=== PATIENT | female | born 1930 | race Caucasian/White ===

== ENCOUNTER 2016-11-11 01:31 | Inpatient (IN) | payer OTHER ==
[2016-11-11] MEDS ORDERED: methylPREDNISolone SOD SUCC 125 MG/2 ML VIAL ONE ×2 (01:35→01:36)
[2016-11-11] MEDS ORDERED: ALBUTEROL 3 ML DEYVIAL ONE (01:35)
[2016-11-11] MEDS ORDERED: methylPREDNISolone SOD SUCC 125 MG/2 ML VIAL IVP ONE (01:36)
[2016-11-11] MEDS ORDERED: ALBUTEROL 3 ML DEYVIAL IH ONE (01:37)
[2016-11-11] MEDS ORDERED: IPRATROPIUM/ALBUTEROL 3 ML DEYVIAL IH ONE (01:37)
--- NOTE | 2016-11-11 01:42 | CPEKG ---
Heart Rate: 107 RR Interval: 561 P-R Interval: 168 QRSD Interval: 80 QT Interval: 320 QTC Interval: 427 P [place]: 58 QRS [place]: 237 T Wave [place]: 49 EKG Severity - ABNORMAL ECG - EKG Impression: SINUS TACHYCARDIA EKG Impression: INFERIOR INFARCT, OLD Electronically Signed By: Bing Vargas 11-Nov-2016 08:18:29
--- NOTE | 2016-11-11 01:45 | EDPHY ---
H & P Time Seen by Provider: 11/11/16 01:40 HPI/ROS: HPI The patient presents brought in by ambulance for respiratory distress. She comes from [facility] where she is a resident. She for the last several hours has had labored breathing according to her usp staff. Upon arrival of paramedics her room air saturation was 80%, she is normally on 2 L of supplemental oxygen. She was notably tachycardic as well. She was diagnosed with influenza A last week and was started on Tamiflu yesterday. She had a fever today to 101.1 F and she has been coughing. There is concerned that she has a pneumonia. In the ambulance, she was started on CPAP with improvement in her oxygen saturations to the high 90s. A glucose was checked and was 510. She is DNR. REVIEW OF SYSTEMS Constitutional: No fever, no chills. Eyes: No discharge. ENT: No sore throat. Cardiovascular: No chest pain, no palpitations. Respiratory: No cough, no shortness of breath. Gastrointestinal: No abdominal pain, no vomiting. Genitourinary: No hematuria. Musculoskeletal: No back pain. Skin: No rashes. Neurological: No headache. PMHx: CHF, COPD, chronic kidney disease, diabetes Soc Hx: Lives at [facility] PHYSICAL General Appearance: Alert, in respiratory distress, CPAP in place, tachypneic Eyes: Pupils equal and round no pallor or injection ENT, Mouth: Mucous membranes dry Respiratory: There are no retractions, decreased breath sounds bilaterally Cardiovascular: Tachycardic rate Gastrointestinal: Abdomen is soft and non-tender, no masses, bowel sounds normal Neurological: A&O, moves all extremities Skin: Warm and dry, no rashes Musculoskeletal: Neck is supple non tender Extremities: symmetrical, no lower extremity edema Psychiatric: Patient is oriented X 3, there is no agitation Source: Patient, Family, EMS - Medical/Surgical History Hx Asthma: No Hx Chronic Respiratory Disease: Yes Hx Diabetes: Yes Hx Cardiac Disease: Yes Hx Renal Disease: Yes Hx Cirrhosis: No Hx Alcoholism: No Hx HIV/AIDS: No Hx Splenectomy or Spleen Trauma: No Other PMH: HTN, CKD, CHF, COPD, diverticulitis, DM, OA, dementia, L mastectomy, GERD, spinal stenosis, - Social History Smoking Status: Never smoked Constitutional: Initial Vital Signs Temperature (C) 38.1 C 11/11/16 01:42 Heart Rate 120 H 11/11/16 01:42 Respiratory Rate 40 H 11/11/16 01:42 Blood Pressure 193/105 H 11/11/16 01:42 O2 Sat (%) 85 L 11/11/16 01:42 O2 Delivery Mode Bi-Pap Allergies/Adverse Reactions: adhesive tape Allergy (Verified 11/11/16 01:52) codeine Allergy (Verified 06/09/15 07:59) Penicillins Allergy (Verified 11/11/16 01:52) iv dye Allergy (Uncoded 06/09/15 07:59) Home Medications: Medication Instructions Recorded ALPRAZolam [Xanax 0.25 MG (*)] 0.25 mg PO Q6 PRN 06/09/15 ARIPiprazole [Abilify 2 mg (*)] 2 mg PO SUTUWETHFRSA@09 06/09/15 Acetaminophen [Tylenol Rectal] 650 mg MI QID PRN 06/09/15 Bisacodyl [Dulcolax] 10 mg RC DAILY PRN 06/09/15 Brimonidine 0.2% [Alphagan 0.2%] 1 drops EACHEYE BID 06/09/15 Calcium Carbonate [Tums 500MG (*)] 500 mg PO Q4 PRN 06/09/15 Famotidine [Pepcid 20 MG (*)] 40 mg PO DAILY 06/09/15 Herbals/Supplements -Info Only 1 ea PO DAILY 06/09/15 Hydrocodone/Acetaminophen [[place] 1 each PO TID 06/09/15 5/325 (*)] Latanoprost 0.005% [Xalatan 0.005% 1 drops EACHEYE HS 06/09/15 (*)] Loperamide HCl [Imodium 2 mg (*)] 2 mg PO PRN PRN 06/09/15 Memantine HCl [Namenda Xr] 14 mg PO DAILY 06/09/15 Mineral Oil/Petrolatum,White 0.25 inch OP HS 06/09/15 [Refresh P.m. Ointment] Ondansetron Odt [Zofran Odt 4 mg 4 mg PO QID PRN 06/09/15 (*)] PARoxetine HCL [Paxil 30mg (*)] 30 mg PO DAILY 06/09/15 Tears/Hypromellose [Natural 1 - 2 drops EACHEYE BID PRN 06/09/15 Balance] Tears/Hypromellose [Natural 2 drops EACHEYE DAILY 06/09/15 Balance] Tiotropium Inhaler [Spiriva 1 inh IH DAILY PRN 06/09/15 Inhaler (RX)] Zolpidem Tartrate [Ambien 5MG (*)] 5 mg PO HS PRN 06/09/15 hydrOXYzine HCL [Vistaril 10MG 10 mg PO HS 06/09/15 (RX)] hydrOXYzine HCL [Vistaril 10MG 10 mg PO Q12 PRN 06/09/15 (RX)] Medical Decision Making - Diagnostics EKG Interpretation: EKG: Complete interpretation has been separately recorded in the [employer] archive. Summary impression: Normal sinus rhythm Imaging: Chest x-ray one view shows right middle/lower lobe pneumonia with cardiomegaly, interpreted by me, radiology interpretation is pending ED Course/Re-evaluation: 1:35 a.m.- Initial patient encounter. I met the paramedics at the bedside to obtain report. She will be started on BiPAP, albuterol, Solu-Medrol. 2:00 a.m.- I talked with the patient's daughter who flew in from [place] today because of her mother's illness. She says she has been with her since this afternoon and she has been mildly confused, the mostly acting herself. Chest x-ray is back and shows a right-sided pneumonia, because she is a [facility]p resident I will give her broad-spectrum antibiotics. Cefepime has been ordered as well as blood cultures. 2:40 a.m.- Patient's lactate returned greater than 2. Because of this, I will start a 30 cc /kilos fluid bolus. We will have to administer this slowly because she does have a history of CHF. I have or ready ordered cefepime for her. A repeat lactate has also been ordered. We attempted to room take her off of BiPAP, however she was persistently tachypneic with normal sats so we will continue this for now. She will be admitted to the ICU in the case has been discussed with Dr. Graff. Differential Diagnosis: This is an 86-year-old female with multiple medical problems including CHF, COPD , diabetes, recent diagnosis of influenza a and Tamiflu who presents with cough , respiratory distress, fever for the last several hours from her [facility], brought in by ambulance. On arrival she is in mild respiratory distress and is continued on BiPAP with nebs in line. She is given a dose of Solu-Medrol. Differential diagnosis includes pneumonia, influenza, COPD exacerbation, CHF exacerbation. Critical Care Time: CRITICAL CARE Critical care time spent by me, Dr Vargas, exclusively with this patient was 60 minutes, exclusive of PA time and exclusive of procedures. The organ system at risk was pulmonary, cardiac and I gave IV fluids, antibiotics, BiPAP, transferred to the ICU to prevent worsening of the patients condition. - Data Points Laboratory Results: Laboratory Results 11/11/16 02:11 11/11/16 01:50 11/11/16 11/11/16 11/11/16 02: 01:50 00:21 WBC 23.10 H 10^3/uL REJ (3.80-9.50) RBC 4.36 10^6/uL REJ (4.18-5.33) Hgb 12.1 L g/dL REJ (12.6-16.3) Hct 37.4 L % REJ (38.0-47.0) MCV 85.8 fL REJ (81.5-99.8) MCH 27.8 L pg REJ (27.9-34.1) MCHC 32.4 g/dL REJ (32.4-36.7) RDW 14.9 % REJ (11.5-15.2) Plt Count 125 L 10^3/uL REJ (150-400) MPV 13.2 H fL REJ (8.7-11.7) Neut % (Auto) Not Reported REJ Lymph % (Auto) Not Reported REJ [place] % (Auto) Not Reported REJ Eos % (Auto) Not Reported REJ Baso % (Auto) Not Reported REJ Nucleat RBC Rel Count 0.1 % REJ (0.0-0.2) Absolute Neuts (auto) Not Reported REJ Absolute Lymphs (auto) Not Reported REJ Absolute Monos (auto) Not Reported REJ Absolute Eos (auto) Not Reported REJ Absolute Basos (auto) Not Reported REJ Absolute Nucleated RBC 0.03 H 10^3/uL REJ (0-0.01) Immature Gran % Not Reported REJ Seg Neutrophils % 70 % Band Neutrophils % 14 % Lymphocytes % 4 % Monocytes % 11 % Basophils % 1 % Immature Gran # Not Reported REJ Absolute Seg Neuts 16.17 H 10^/uL (1.70-6.50) Absolute Band Neuts 3.23 H 10^3/uL (0.00-0.70) Absolute Lymphocytes 0.92 L 10^3/uL (1.00-3.00) Absolute Monocytes 2.54 H 10^3/uL (0.30-0.80) Absolute Basophils 0.23 H 10^3/uL (0.02-0.10) Nucleated RBCs 1 H /100 WBC (0-0) Dohle Bodies PRESENT H Platelet Estimate DECREASED L (ADEQ) Polychromasia 1+ H Smear Review By Pending ABG Lactic Acid REJ VBG Lactic Acid 2.9 H mmol/L (0.7-2.1) Sodium 137 mEq/L (134-144) Potassium 3.8 mEq/L (3.5-5.2) Chloride 101 mEq/L (97-110) Carbon Dioxide 21 L mEq/l (22-31) Anion Gap 15 mEq/L (8-16) BUN 44 H mg/dL (7-23) Creatinine 1.8 H mg/dL (0.6-1.0) Estimated GFR 27 Glucose 537 H* mg/dL (70-100) Calcium 7.9 L mg/dL (8.5-10.4) Troponin I 0.060 H ng/mL (0-0.034) NT-Pro-B Natriuret Pep 2340 H pg/mL (0-450) Medications Given: Discontinued Medications Albuterol (Proventil Neb) 3 ml IH EDNOW ONE Stop: 11/11/16 01:38 Last Admin: 11/11/16 01:40 Dose: 3 ml Albuterol/Ipratropium (Duoneb) 3 ml IH EDNOW ONE Stop: 11/11/16 01:38 Last Admin: 11/11/16 01:50 Dose: 3 ml Cefepime HCl 2 gm/ Dextrose 100 mls @ 200 mls/hr IV EDNOW ONE PRN Reason: Protocol Stop: 11/11/16 02:19 Last Admin: 11/11/16 02:35 Dose: 100 mls Insulin Human Regular (Humulin R) 10 unit IVP EDNOW ONE Stop: 11/11/16 02:45 Last Admin: 11/11/16 03:35 Dose: 10 mg Methylprednisolone Sodium Succinate (Solu-Medrol) 125 mg IVP EDNOW ONE Stop: 11/11/16 01:37 Last Admin: 11/11/16 02:12 Dose: 125 mg Sodium Chloride (Ns *For Sepsis Order Set Only*) 2,000 ml IV EDNOW ONE Stop: 11/11/16 02:39 Last Admin: 11/11/16 03:30 Dose: 2,000 ml Departure - Departure Disposition: [facility] Inpatient Acute Clinical Impression: Influenza A, Elevated troponin Pneumonia Qualifiers: Pneumonia type: due to unspecified organism Laterality: unspecified laterality Lung location: unspecified part of lung Qualifier Code: (J18.9) Pneumonia, unspecified organism Sepsis Qualifiers: Sepsis type: sepsis due to unspecified organism Qualifier Code: (A41.9) Sepsis , unspecified organism CHF (congestive heart failure) Qualifiers: Congestive heart failure type: systolic Congestive heart failure chronicity: acute on chronic Qualifier Code: (I50.23) Acute on chronic systolic (congestive ) heart failure Condition: Serious
[2016-11-11] MEDS ORDERED: CEFEPIME HCL 2 GM in D5W 100 ML IV ONE (01:50)
[2016-11-11 02:20] LABS: ANION GAP 15 mEq/L (8-16); CALCIUM 7.9 mg/dL (8.5-10.4); CARBON DIOXIDE 21 mEq/l (22-31); CHLORIDE 101 mEq/L (97-110); CREATININE 1.8 mg/dL (0.6-1.0); GLOMERULAR FILTRATION RATE 27; POTASSIUM 3.8 mEq/L (3.5-5.2); SODIUM 137 mEq/L (134-144)
[2016-11-11 02:27] LABS: GLUCOSE 537 mg/dL (70-100)
[2016-11-11 02:35] LABS: ABSOLUTE NRBC COUNT 0.03 10^3/uL (0-0.01); ADD DIFF? YES; ADD MORPH? NO; ADD SCAN? NO; ATYPICAL LYMPHOCYTE FLAG 0 (0-99); FRAGMENT RBC FLAG 0 (0-99); HEMATOCRIT 37.4 % (38.0-47.0); HEMOGLOBIN 12.1 g/dL (12.6-16.3); LEFT SHIFT FLG 40 (0-99); LIPEMIA HEMOLYSIS FLAG 80 (0-99); MEAN CELL HEMOGLOBIN 27.8 pg (27.9-34.1); MEAN CELL HEMOGLOBIN CONCENTR. 32.4 g/dL (32.4-36.7); MEAN CELL VOLUME 85.8 fL (81.5-99.8); MEAN PLATELET VOLUME 13.2 fL (8.7-11.7); NRBC-AUTO% 0.1 % (0.0-0.2); PLATELET CLUMPS FLAG 10 (0-99); PLATELET COUNT 125 10^3/uL (150-400); RED BLOOD CELL COUNT 4.36 10^6/uL (4.18-5.33); RED CELL DISTRIBUTION WIDTH 14.9 % (11.5-15.2)
[2016-11-11] MEDS ORDERED: NS 1,000 ML BAG *FOR SEPSIS ORDER SET ONLY IV ONE (02:38)
[2016-11-11] MEDS ORDERED: INSULIN REGULAR HUMAN 100 UNIT/ML IVP ONE (02:44)
[2016-11-11] MEDS ORDERED: ALBUTEROL 3 ML DEYVIAL IH PRN (03:01)
[2016-11-11] MEDS ORDERED: ONDANSETRON DISINTEGRATING 4 MG TAB PO PRN (03:01)
[2016-11-11] MEDS ORDERED: ACETAMINOPHEN 325 MG TAB PO PRN (03:01)
[2016-11-11 03:02] LABS: PLATELET ESTIMATE DECREASED (ADEQ); POLYCHROMASIA 1+
[2016-11-11] MEDS ORDERED: D50W 25 GM/50 ML SYR IVP PRN (03:10)
[2016-11-11 03:52] LABS: PCO2 VENOUS 28 mmHg (40-44); PH VENOUS BLOOD 7.36 (7.31-7.42); PO2 VENOUS 191 mmHg (35-40); TCO2 VENOUS 17 mEq/L (23-27); VEN MEASURED OXYGEN SATURATION 99 % (65-75)
[2016-11-11 05:15] LABS: ALANINE AMINOTRANSFERASE 25 IU/L (9-52); ALBUMIN 2.9 g/dL (3.5-5.0); ALKALINE PHOSPHATASE 139 IU/L (38-126); ANION GAP 16 mEq/L (8-16); ASPARTATE AMINOTRANSFERASE 20 IU/L (14-46); BILIRUBIN,TOTAL 0.8 mg/dL (0.1-1.4); CALCIUM 7.7 mg/dL (8.5-10.4); CARBON DIOXIDE 18 mEq/l (22-31); CHLORIDE 107 mEq/L (97-110); CREATININE 1.7 mg/dL (0.6-1.0); GLOMERULAR FILTRATION RATE 28; GLUCOSE 465 mg/dL (70-100); SODIUM 141 mEq/L (134-144); TOTAL PROTEIN 6.3 g/dL (6.3-8.2)
[2016-11-11] MEDS: IPRATROPIUM/ALBUTEROL 3 ML DEYVIAL IH SCH ×4 (05:37→19:52)
[2016-11-11 05:57] LABS: POTASSIUM 2.7 mEq/L (3.5-5.2)
[2016-11-11] MEDS ORDERED: PROTOCOL POTASSIUM 1 DOSE MISC PRN (06:08)
[2016-11-11] MEDS ORDERED: PROTOCOL MAGNESIUM 1 DOSE IV PRN (06:08)
[2016-11-11 06:09] LABS: TROPONIN I 0.058 ng/mL (0-0.034)
[2016-11-11 06:26] LABS: COLOR PALE YELLOW; LEUKOCYTE ESTERASE,URINE NEGATIVE (NEGATIVE); NITRITE,URINE NEGATIVE (NEGATIVE)
[2016-11-11] MEDS ORDERED: POTASSIUM Cl (KCl) 10 MEQ/100 ML BAG IV ONE (06:28)
[2016-11-11 06:29] LABS: AMORPHOUS PRESENT /hpf (NONE-1+); BACTERIA TRACE /hpf (NONE SEEN); MUCUS TRACE /lpf (NONE-1+)
[2016-11-11] MEDS ORDERED: INSULIN REGULAR HUMAN 100 UNIT in NS 100 ML IV SCH ×2 (06:30→23:30)
[2016-11-11] MEDS: INSULIN LISPRO 100 UNIT/ML SC SCH ×5 (06:35→22:16)
[2016-11-11] MEDS: methylPREDNISolone SOD SUCC 125 MG/2 ML VIAL IVP SCH ×3 (06:39→21:07)
[2016-11-11] MEDS: POTASSIUM Cl (KCl) 100 ML IV SCH ×4 (06:45→12:47)
[2016-11-11 06:52] LABS: CALCULATED OXYGEN SATURATION 96 % (92-95)
--- NOTE | 2016-11-11 06:57 | PDGENHP ---
History and Physical - Chief Complaint acute respiratory failure - History of Present Illness Patient is an 86/F with HTN, GERD, COPD, chronic respiratory failure and DM2, resides in [facility] and was transferred to the ED for fever and acute respiratory failure. patient able to provide any history due to altered mental status and respiratory distress, history obtained from patient's daughter. Daughter states patient began to feel generally unwell about 1 week ago with generalized fatigue and malaise. Over the following day her to do she also developed cough, and by 11/10 patient had developed a fever at her SNF. With the development of the fever, patient was noted to become significantly more lethargic over the course of the day and her respiratory status also worsened. A flu swab was obtained and returned positive for influenza A. Patient was started on tamiflu at [facility], however, given her worsening respiratory and mental status, she was transferred to the ED for further management. At her baseline, patient is oriented to person, place, time and aware of her family and surroundings. She is wheelchair bound, but had been active in her SNF prior to present illness. On arrival to the ED, patient was febrile, tachycardic and hypoxic, but BP was stable. Labs revealed elevated leukocytosis, elevated glucose, elevated lactic acid and mildly elevated troponin. CXR revealed likely RML/RLL infiltrate. EKG did not reveal any obvious ischemia. She was given broad spectrum antibiotics, placed on BIPAP for respiratory failure and admitted to the hospitalist service for further management. Patient's two daughters were at bedside during admission and stated that patient would not want invasive measures performed if the prognosis for recovery was poor. Given pt's tenuous respiratory status on BIPAP and underlying lung disease, daughters were asked if patient would want intubation for worsening respiratory status and they stated she would not want to pursue this and the daughters also both agreed with this sentiment. They wish any reversible medical problems be treated as best as possible, but have made patient DNR/DNI. History Information - Allergies/Home Medication List Allergies/Adverse Reactions: adhesive tape Allergy (Verified 11/11/16 01:52) codeine Allergy (Verified 06/09/15 07:59) Penicillins Allergy (Verified 11/11/16 01:52) iv dye Allergy (Uncoded 06/09/15 07:59) Home Medications: ALPRAZolam [Xanax 0.25 MG (*)] 0.25 mg PO Q6 PRN 06/09/15 [Last Taken 06/08/15] ARIPiprazole [Abilify 2 mg (*)] 2 mg PO SUTUWETHFRSA@09 06/09/15 [Last Taken 05/15] Acetaminophen [Tylenol Rectal] [address] QID PRN 06/09/15 [Last Taken Unknown] Bisacodyl [Dulcolax] 10 mg RC DAILY PRN 06/09/15 [Last Taken Unknown] Brimonidine 0.2% [Alphagan 0.2%] 1 drops EACHEYE BID 06/09/15 [Last Taken ] Calcium Carbonate [Tums 500MG (*)] 500 mg PO Q4 PRN 06/09/15 [Last Taken Unknown ] Famotidine [Pepcid 20 MG (*)] 40 mg PO DAILY 06/09/15 [Last Taken 06/08/15] Herbals/Supplements -Info Only 1 ea PO DAILY 06/09/15 [Last Taken Unknown] Hydrocodone/Acetaminophen [[place] 5/325 (*)] 1 each PO TID 06/09/15 [Last Taken 06/08/15] Latanoprost 0.005% [Xalatan 0.005% (*)] 1 drops EACHEYE HS 06/09/15 [Last Taken 06/08/15] Loperamide HCl [Imodium 2 mg (*)] 2 mg PO PRN PRN 06/09/15 [Last Taken Unknown] Memantine HCl [Namenda Xr] 14 mg PO DAILY 06/09/15 [Last Taken 06/08/15] Mineral Oil/Petrolatum,White [Refresh P.m. Ointment] 0.25 inch OP HS 06/09/15 [ Last Taken 06/08/15] Ondansetron Odt [Zofran Odt 4 mg (*)] 4 mg PO QID PRN 06/09/15 [Last Taken 06/08] PARoxetine HCL [Paxil 30mg (*)] 30 mg PO DAILY 06/09/15 [Last Taken 06/08/15] Tears/Hypromellose [Natural Balance] 1 - 2 drops EACHEYE BID PRN 06/09/15 [Last Taken Unknown] Tears/Hypromellose [Natural Balance] 2 drops EACHEYE DAILY 06/09/15 [Last Taken 06/08/15] Tiotropium Inhaler [Spiriva Inhaler (RX)] 1 inh IH DAILY PRN 06/09/15 [Last Taken Unknown] Zolpidem Tartrate [Ambien 5MG (*)] 5 mg PO HS PRN 06/09/15 [Last Taken Unknown] hydrOXYzine HCL [Vistaril 10MG (RX)] 10 mg PO HS 06/09/15 [Last Taken 06/08/15] hydrOXYzine HCL [Vistaril 10MG (RX)] 10 mg PO Q12 PRN 06/09/15 [Last Taken Unknown] I have personally reviewed and updated: family history, medical history, social history, surgical history - Past Medical History Additional medical history: HTN. GERD. COPD. chronic respiratory failure on 2 -3L NC. DM2 on oral meds only. CKD stage 3-4. Glaucoma. ? chf, per daughters , however, no other documentation of this - Surgical History Reports: no pertinent surgical hx - Family History Positive for: non-pertinent - Social History Smoking Status: Never smoked Alcohol Use: None Drug Use: None Additional social history: Patient has lived in [facility] for > 4years, has 4 children in total, 2 present at bedside, 2 others live out of state and are attempting to fly in. Review of Systems Review of Systems: unable to obtain ROS due to altered mental status Physical Exam Temp Pulse Resp BP Pulse Ox 37.6 C 104 H 38 H 167/85 H 97 11/11/16 05:02 11/11/16 05:37 11/11/16 05:37 11/11/16 05:02 11/11/16 05:37 FIO2 (%) 40 Constitutional: chronically ill appearing, obese, other (altered, in respiratory distress) Eyes: PERRL, anicteric sclera, EOMI Ears, Nose, Mouth, Throat: hearing normal, ears appear normal, no oral mucosal ulcers, dry mucous membranes Cardiovascular: no murmur, rub, or gallop, pulses symmetric bilaterally, tachycardia, No JVD, No edema Peripheral Pulses: 2+: dorsalis-pedis (R), dorsalis-pedis (L) Respiratory: reduced air movement, expiratory wheeze, inspiratory crackles, respiratory distress (on BIPAP, tachycpneic, using accessory muscles of respiration) Gastrointestinal: normoactive bowel sounds, soft, non-tender abdomen, no palpable masses, No guarding, No rebound Genitourinary: no bladder fullness, no bladder tenderness Skin: other (perineal skin erythema and breakdown; present on arrival) Musculoskeletal: generalized weakness Neurologic: other (lethargic, but answers yes/no questions; unable to assess full neuro exam, moving all extremities equally ) Psychiatric: encephalopathic Lab Data & Imaging Review 11/11/16 02:11 11/11/16 04:40 WBC 23.10 10^3/uL (3.80-9.50) H 11/11/16 02:11 RBC 4.36 10^6/uL (4.18-5.33) 11/11/16 02:11 Hgb 12.1 g/dL (12.6-16.3) L 11/11/16 02:11 Hct 37.4 % (38.0-47.0) L 11/11/16 02:11 MCV 85.8 fL (81.5-99.8) 11/11/16 02:11 MCH 27.8 pg (27.9-34.1) L 11/11/16 02:11 MCHC 32.4 g/dL (32.4-36.7) 11/11/16 02:11 RDW 14.9 % (11.5-15.2) 11/11/16 02:11 Plt Count 125 10^3/uL (150-400) L 11/11/16 02:11 MPV 13.2 fL (8.7-11.7) H 11/11/16 02:11 Neut % (Auto) Not Reported 11/11/16 02:11 Lymph % (Auto) Not Reported 11/11/16 02:11 [place] % (Auto) Not Reported 11/11/16 02:11 Eos % (Auto) Not Reported 11/11/16 02:11 Baso % (Auto) Not Reported 11/11/16 02:11 Nucleat RBC Rel Count 0.1 % (0.0-0.2) 11/11/16 02:11 Absolute Neuts (auto) Not Reported 11/11/16 02:11 Absolute Lymphs (auto) Not Reported 11/11/16 02:11 Absolute Monos (auto) Not Reported 11/11/16 02:11 Absolute Eos (auto) Not Reported 11/11/16 02:11 Absolute Basos (auto) Not Reported 11/11/16 02:11 Absolute Nucleated RBC 0.03 10^3/uL (0-0.01) H 11/11/16 02:11 Immature Gran % Not Reported 11/11/16 02:11 Seg Neutrophils % 70 % 11/11/16 02:11 Band Neutrophils % 14 % 11/11/16 02:11 Lymphocytes % 4 % 11/11/16 02:11 Monocytes % 11 % 11/11/16 02:11 Basophils % 1 % 11/11/16 02:11 Immature Gran # Not Reported 11/11/16 02:11 Absolute Seg Neuts 16.17 10^/uL (1.70-6.50) H 11/11/16 02:11 Absolute Band Neuts 3.23 10^3/uL (0.00-0.70) H 11/11/16 02:11 Absolute Lymphocytes 0.92 10^3/uL (1.00-3.00) L 11/11/16 02:11 Absolute Monocytes 2.54 10^3/uL (0.30-0.80) H 11/11/16 02:11 Absolute Basophils 0.23 10^3/uL (0.02-0.10) H 11/11/16 02:11 Nucleated RBCs 1 /100 WBC (0-0) H 11/11/16 02:11 Dohle Bodies PRESENT H 11/11/16 02:11 Platelet Estimate DECREASED (ADEQ) L 11/11/16 02:11 Polychromasia 1+ H 11/11/16 02:11 Specimen Type ARTERIAL 11/11/16 06:41 Puncture Site REJ 11/11/16 06:18 Patient Temperature 37.9 DEGREES 11/11/16 06:41 pCO2 33 mmHg (34-38) L 11/11/16 06:41 pO2 94 mmHg (65-75) H 11/11/16 06:41 Total CO2 18 mEq/L (23-27) L 11/11/16 06:41 Base Excess -8.0 mEq/L (-2.5-2.5) L 11/11/16 06:41 ABG pH 7.32 (7.35-7.45) L 11/11/16 06:41 ABG HCO3 17 mEq/L (22-26) L 11/11/16 06:41 ABG O2 Sat (Calculated) 96 % (92-95) H 11/11/16 06:41 ABG O2 Saturation REJ 11/11/16 06:18 ABG Base Excess REJ 11/11/16 06:18 ABG Lactic Acid REJ 11/11/16 06:18 VBG pH 7.36 (7.31-7.42) 11/11/16 03:43 VBG HCO3 16 mEQ/L (22-26) L 11/11/16 03:43 VBG Total CO2 17 mEq/L (23-27) L 11/11/16 03:43 VBG O2 Saturation 99 % (65-75) H 11/11/16 03:43 VBG Base Excess -8.0 mEq/L (-2.5-2.5) L 11/11/16 03:43 VBG Lactic Acid 2.8 mmol/L (0.7-2.1) H 11/11/16 05:20 Mixed VBG pCO2 28 mmHg (40-44) L 11/11/16 03:43 Mixed VBG pO2 191 mmHg (35-40) H 11/11/16 03:43 Sodium 141 mEq/L (134-144) 11/11/16 04:40 Potassium 2.7 mEq/L (3.5-5.2) L* 11/11/16 04:40 Chloride 107 mEq/L (97-110) 11/11/16 04:40 Carbon Dioxide 18 mEq/l (22-31) L 11/11/16 04:40 Bicarbonate REJ 11/11/16 06:18 Anion Gap 16 mEq/L (8-16) 11/11/16 04:40 BUN 40 mg/dL (7-23) H 11/11/16 04:40 Creatinine 1.7 mg/dL (0.6-1.0) H 11/11/16 04:40 Estimated GFR 28 11/11/16 04:40 Glucose 465 mg/dL (70-100) H 11/11/16 04:40 Calcium 7.7 mg/dL (8.5-10.4) L 11/11/16 04:40 Magnesium 1.4 mg/dL (1.6-2.3) L 11/11/16 04:40 Total Bilirubin 0.8 mg/dL (0.1-1.4) 11/11/16 04:40 AST 20 IU/L (14-46) 11/11/16 04:40 ALT 25 IU/L (9-52) 11/11/16 04:40 Alkaline Phosphatase 139 IU/L (38-126) H 11/11/16 04:40 Troponin I 0.058 ng/mL (0-0.034) H 11/11/16 04:40 NT-Pro-B Natriuret Pep 2340 pg/mL (0-450) H 11/11/16 01:50 Total Protein 6.3 g/dL (6.3-8.2) 11/11/16 04:40 Albumin 2.9 g/dL (3.5-5.0) L 11/11/16 04:40 Urine Color PALE YELLOW 11/11/16 06:10 Urine Appearance CLEAR 11/11/16 06:10 Urine pH 6.0 (5.0-7.5) 11/11/16 06:10 Ur Specific [place] 1.010 (1.002-1.030) 11/11/16 06:10 Urine Protein 2+ (NEGATIVE) H 11/11/16 06:10 Urine Ketones NEGATIVE (NEGATIVE) 11/11/16 06:10 Urine Blood 1+ (NEGATIVE) H 11/11/16 06:10 Urine Nitrate NEGATIVE (NEGATIVE) 11/11/16 06:10 Urine Bilirubin NEGATIVE (NEGATIVE) 11/11/16 06:10 Urine Urobilinogen NEGATIVE EU (0.2-1.0) 11/11/16 06:10 Ur Leukocyte Esterase NEGATIVE (NEGATIVE) 11/11/16 06:10 Urine RBC 3-5 /hpf (0-3) H 11/11/16 06:10 Urine WBC 1-3 /hpf (0-3) 11/11/16 06:10 Ur Epithelial Cells Not Reported 11/11/16 06:10 Amorphous Sediment PRESENT /hpf (NONE-1+) 11/11/16 06:10 Urine Bacteria TRACE /hpf (NONE SEEN) H 11/11/16 06:10 Urine Mucus TRACE /lpf (NONE-1+) 11/11/16 06:10 Urine Glucose 3+ (NEGATIVE) H 11/11/16 06:10 Visualized and Interpreted Chest x-ray results: Yes Chest X-Ray results: other (R lower lobe infiltrate) Visualized and Interpreted EKG results: Yes EKG Interpretation: Positive for: normal sinsus rhythm (with inferior q wave) Assessment & Plan Assessment: Patient is an [id number] with DM2, HTN, CHF, chronic respiratory failure, COPD who was transferred to the ED for acute respiratory failure due to acute influenza A and superimposed bacterial pneumonia. Plan: # acute on chronic hypoxic respiratory failure Likely related to acute bacterial and viral pneumonia, with possible superimposed acute CHF exacerbation. Resp status is tenuous, but currently stable on BIPAP. Patient and family do not want to pursue further invasive ventilatory support. Will cont BIPAP, check TTE to assess severity/type of CHF, consider diuresis if needed. # sepsis due to acute bacterial pneumonia and influenza A infection Patient febrile, tachycardic and with leukocytosis on presentation, consistent with sepsis, due to acute influenza a and presumed gram neg/gram positive pneumonia. WIll f/u blood cultures, obtain sputum culture, cont tamiflu and cefepime for coverage. # hyperglycemia, chronic DM2 Patient markedly hyperglycemic on presentation, likely due to acute infection. BMP does not appear consistent with DKA or HHS. Given insulin in ED, will likely need insulin drip given critical illness. However, will need to correct hypokalemia prior to initiating insulin drip. # CHF No record of type or severity of CHF in medical record. BNP elevate on presentation, CXR reveals likely infiltrate, but no obvious effusion or edema. Will check TTE and consider diuresis. Cont home CHF med regimen once confirmed. # lactic acidosis, hypokalemia Patient with metabolic acidosis due to elevated lactic, which is likely due to respiratory failure and increased work of breathing. Patient received about 2L NS bolus as per sepsis protocol resuscitation, but lactic acid remains elevated. Will replete electrolytes and trend lactic acid. #elevated BUN/cr Patient has known CKD, baseline cr is not known. Repete BMP after fluid resuscitation shows BUN/cr slightly improved. Will check urine electrolytes. # dispo: admit to inpatient service for > 2 MN for multiple severe medical problems #gen; NPO DVT ppx: lovenox DNR/DNI Total critical care time in direct patient care about 60 minutes.
[2016-11-11] MEDS ORDERED: NS 1,000 ML IV SCH (08:00)
--- NOTE | 2016-11-11 08:22 | DX ---
Portable Chest, 1:49 AM History: Respiratory distress Comparison: None Findings: There is patchy right upper lobe and more consolidated right lower lobe can't infiltrate co nsistent with pneumonia. I suspect there is also some patchy infiltrate at the left base. There is no pleural fluid. Left chest wall surgical clips are present. 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 Impression: Pneumonia
[2016-11-11] MEDS ORDERED: MAGNESIUM SULF 2 GM/WATER 50 ML IV ONE (08:36)
[2016-11-11] MEDS: OSELTAMIVIR 6 MG/ML UDSYR PO SCH ×2 (10:44→18:51)
[2016-11-11] MEDS ORDERED: HYDROCODONE/APAP 5/325 TAB PO PRN (11:11)
[2016-11-11] MEDS ORDERED: NON-FORMULARY NEW DRUG (Tears/Hypromellose [Natural Balance] 0 DROPS) EACHEYE PRN (11:11)
[2016-11-11] MEDS ORDERED: hydrOXYzine HCL 10 MG TAB PO PRN (11:11)
[2016-11-11] MEDS ORDERED: PETROLAT,WHT/MIN OIL/SOD CHL 3.5 GM OPHT.OINT EACHEYE PRN (11:31)
[2016-11-11] MEDS ORDERED: TEARS/DEXTRAN 70/HYPROMELLOSE 15 ML OPHT.BTL EACHEYE PRN ×2 (11:33)
[2016-11-11] MEDS: ENOXAPARIN 40 MG/0.4 ML SYR SC SCH ×2 (11:51→13:45)
[2016-11-11] MEDS ORDERED: NS 1,000 ML IV ONE (12:00)
[2016-11-11] MEDS ORDERED: LIDOCAINE 1% 30 ML SDV ONE (12:01)
--- NOTE | 2016-11-11 12:34 | IR ---
Imaging Guided Peripherally Inserted Central Catheter History: Sepsis. Prophylactic Antibiotic: Cefazolin was not ordered and administered for antimicrobial prophylaxis be cause it was not medically necessary for this procedure. VTE Prophylaxis: There is not an order for VTE prophylaxis to be given within 24 hours after procedu re end time because it was not medically necessary for this procedure. Crosscutting Measure: Patient's current list of medications including all known prescriptions, over- the-counters, herbals, and vitamin/mineral/dietary supplements are reviewed. Medications' name, dosa ge, frequency, and route of administration are confirmed. Patient is a non-smoker. Technique: This procedure is performed at patient's bedside. No fluoroscopy was utilized. Following i nformed consent, the right arm was prepped and draped in sterile fashion. 1% Xylocaine was used for l ocal anesthetic. All elements of maximal sterile barrier technique including cap, mask, sterile lorena n, sterile gloves, large sterile sheet, hand hygiene, and 2% chlorhexidine for cutaneous antisepsis, followed. Ultrasound evaluation of potential access site was performed. After successfully identifying a patent vessel, ultrasound guidance was used to puncture the vein. A permanent recording was created for the patient's record. Ultrasound transducer was placed in sterile sleeve and used for real-time imaging guidance over steri le gel to enter the brachial vein. 0.018 measuring wire was passed centrally. A skin angelica with scalpe l blade was followed by removing the access needle. A 5 [place] peel-away sheath was followed by a 5 [place] double-lumen central catheter, trimmed to 37 cm length. The tip of the catheter was positioned centrally and the guidewire removed. The hub of the catheter was fixed to the skin using a sterile StatLock adhesive device, and a sterile dressing was applied. The catheter was irrigated. Fluoroscopy: 0 min Dose: 0 mGy Exposures: 0 images Impression: 5 [place] double lumen peripherally inserted central catheter. Chest x-ray to follow to e valuate tip placement.
--- NOTE | 2016-11-11 12:35 | DX ---
AP portable chest Indication: Sepsis. Comparison: Earlier today at 0149 hour. Findings: Right-sided PICC terminates in good position. Diffuse interstitial prominence is again note d. Bones and joints are unchanged for patient. Impression: Right-sided PICC is in good position, ready for immediate use.
[2016-11-11] MEDS ORDERED: MAGNESIUM SULF 2 GM/WATER 50 ML BAG IV ONE (12:48)
[2016-11-11 12:57] LABS: GLUCOSE 408 mg/dL (70-100); POTASSIUM 3.3 mEq/L (3.5-5.2)
[2016-11-11] MEDS ORDERED: POTASSIUM Cl (KCl) 50 ML IV ONE ×2 (13:30)
[2016-11-11] MEDS: AZITHROMYCIN IV 500 MG in D5W 250 ML IV SCH (13:35)
--- NOTE | 2016-11-11 13:41 | ECHO ---
[id number] + + [id number] : : [place] [id number] : : [phone] + + Adult Echocardiographic Report + ----+ :Name: JOANN MASSEYSteffi Date: 11/11/2016 08:45 AM BP: 142/64 mm Hg : : Hospital Admission Number: [id number] : :: 1930 Gender: Female Height: 792 i n : :Age: 86 yrs Race: WH Weight: 196 l b : :Reason For Study: ?CHF : : BSA: 12.0 met ers2: :History: ?h/o CHF : + ----+ MMode/2D Measurements & Calculations IVSd: 1.3 cm RVDd: 3.7 cm FS: 40.1 % Ao root diam: LVPWd: 1.1 cm LVIDd: 3.3 cm EDV(Teich): 2.3 cm LVIDs: 1.9 cm 42.5 ml ESV(Teich): 11.9 ml EF(Teich): 72.1 % LVLd ap4: 7.8 cm SV(MOD-sp4): EDV(MOD-sp4): 63.0 ml 99.0 ml LVLs ap4: 5.8 cm ESV(MOD-sp4): 36.0 ml EF(MOD-sp4): 63.6 % Normal Measurement Values: + + :LVIDd (3.5-5.7cm) IVSd (0.6-1.1cm) LVPWd (0.6-1.1cm) Aortic Root (2.0-3.7cm)Left Atrium (1.5-4.0cm): :LV Vol(d) (76-115ml) LV Vol(s) (29-48ml) Ejec Fraction (50-65%)PV Tavo (0.6- 1.2m/s) TV Tavo (0.4-1.0m/s) : :MV E Tavo (0.8-1.0m/s)MV A Tavo (0.3-1.0m/s)LVOT Tavo (0.7-1.2m/s) Asc Ao Tavo ( 0.9-1.8m/s) : + + Doppler Measurements & Calculations MV E max tavo: Ao V2 max: LV V1 max: RAP systole: 63.2 cm/sec 154.2 cm/sec 100.2 cm/sec 5.0 mmHg MV A max tavo: Ao max P.5 mmHgLV V1 max P.5 cm/sec 4.0 mmHg MV E/A: 0.55 MV dec time: 0.24 sec Left Ventricle The left ventricular cavity is small. There is mild concentric left ventricular hypertrophy. Echo findings are not consistent with left ventricular outflow obstruction. Left ventricular systolic function is normal. Ejection Fraction = 65%. Diastolic function indeterminate. No regional wall motion abnormalities noted. Right Ventricle The right ventricle is grossly normal size. The right ventricular systolic function is normal. Atria The left atrial size is normal. Posterior MAC with shadowing into the left atrium; cannot completely rule out left atrial thrombus. Right atrial size is normal. Mitral Valve The mitral valve is normal in structure and function. Calcified mitral apparatus. There is no mitral valve stenosis. There is no mitral regurgitation noted. Tricuspid Valve The tricuspid valve is normal in structure and function. There is no tricuspid stenosis. There is trace tricuspid regurgitation. Aortic Valve The aortic valve is not well visualized. There is no aortic stenosis. There is no aortic insufficiency. Pulmonic Valve The pulmonic valve is not well visualized. Great Vessels The aortic root is normal size. Pericardium/Pleural Fat pad versus pericardial effusion. Conclusion The study was technically difficult. The left ventricular cavity is small. There is mild concentric left ventricular hypertrophy. Left ventricular systolic function is normal. Ejection Fraction = 65%. Echo findings are not consistent with left ventricular outflow obstruction. Posterior MAC with shadowing into the left atrium; cannot completely rule out left atrial thrombus. There is trace tricuspid regurgitation. The aortic valve is not well visualized. No or AR by Doppler Consider RODRIGUEZ to further evaluate LA No prior echo Final Reading Physician: Dr Lindsey Castro electronically signed on 11/11/2016 01:39 PM Ordering Physician: Taryn Graff Performed By: Lisa Ander
[2016-11-11] MEDS: POTASSIUM Cl (KCl) 50 ML IV SCH ×3 (13:44→22:54)
--- NOTE | 2016-11-11 14:28 | DX ---
Abdomen Single View Indication: Verify NG tube placement. Findings: The NG tube is in the stomach. Otherwise, the study is limited for evaluation of bowel gas pattern. Impression: NG tube is in the stomach.
--- NOTE | 2016-11-11 14:38 | GCON ---
[f rep st] CONSULTATION PULMONARY CRITICAL CARE CONSULTATION DATE OF CONSULTATION: 11/11/2016 REASON FOR CONSULTATION: Acute respiratory failure, pneumonia, influenza A positive. HISTORY: The patient is an 86-year-old with multiple medical problems, including chronic obstructive pulmonary disease, chronic hypoxemia, type 2 diabetes as well as other problems, who has had increas ing fatigue and malaise over the last week associated with cough and increasing shortness of breath. She was febrile on the day prior to admission. This was followed by increasing lethargy and increas ed shortness of breath. She was [facility] for influenza A at her [facility] and was started on Brandy flu. However secondary to worsening respiratory status, she was sent to the emergency department at [facility]. She was tachypneic on arrival, hypoxemic and febrile. Chest x-ray showed a right basilar infiltrate. She was given antibiotics, steroids and bronchodilator treatments, started on B iPAP, and admitted to the intensive care unit. She is "no COR" and thus has not been intubated. She lives at [facility]. She is wheelchair bound. If has a supportive family who confirmed her do-n ot-resuscitate wishes. Since admission, she has been stable. She has remained on BiPAP. She does arouse. Central lines we re attempted with difficulty and eventually a PICC line was placed. NG tube has been placed. PAST MEDICAL HISTORY: As outlined above and includes COPD, chronic hypoxemia, type 2 diabetes, gastr oesophageal reflux disease, hypertension, chronic renal insufficiency, chronic pain, and depression. The patient is wheelchair bound. She was last hospitalized at [facility] in August of 2015 for vomiting and dehydration. MEDICATIONS: Home medications on admission include Pepcid, Abilify, Tamiflu, Namenda, glipizide, vit rodriguez D, calcium, glaucoma topical preparations, Paxil, cathartics, Rosenberg, and other p.r.n. medication s. DRUG ALLERGIES: Adhesive tape, contrast, codeine, penicillins. SOCIAL HISTORY: The patient is a resident of [facility]. She is a never smoker, alcohol negative . Supportive family with 2 children in town. FAMILY HISTORY: Noncontributory. REVIEW OF SYSTEMS: Unable to obtain. PHYSICAL EXAMINATION: GENERAL: Reveals an obese, elderly woman who is on BiPAP and appears to be re sting comfortably. VITAL SIGNS: Blood pressure is 150/75, heart rate 90 with sinus rhythm on the mo nitor. Respiratory rate is 25. On BiPAP saturations are 98%. She is afebrile currently with a maxi mum temperature of 38.1. HEENT: Remarkable for equal and round pupils. BiPAP mask is in place. An NG tube was just placed and is present in the left nares. Mucous membranes are moist. NECK: Large . Jugular venous pressure could not be estimated. There is no lymphadenopathy or thyromegaly obviou s. CHEST: Reveals decreased breath sounds bilaterally with wheezes, congestion, and rales primarily at the left base. There are some consolidative changes at the left base. The heart tones are dista nt. The rhythm is regular. A soft systolic murmur is present. There are no obvious gallops. P2 ca nnot be assessed. ABDOMEN: Obese, soft and nontender. Bowel sounds are diminished, but present. A Andujar catheter is in place. She appears to be making good urine. EXTREMITIES: Remarkable for 1+ e ronaldo bilaterally. There are no obvious cords. NEUROLOGIC: Nonfocal. She moves all extremities equ ally to stimulation. She opens her eyes at times to stimulation, but will not currently answer quest ions or follow commands. DATABASE: Chest x-ray shows a right basilar infiltrate. There is likely some increased markings in the right upper lobe and possible retrocardiac densities as well. PICC line is in good position on t he right. LABORATORY: White blood cell count is 23,000, hematocrit 37, platelets 125,000. There is a shift to the left without lymphocytes. Arterial blood gas done early this morning in the emergency departmen t showed a pH of 7.32, pCO2 of 33 and a PO2 of 94. Base excess was -8, CO2 18. Sodium is 141, potas sium 2.7, up to 3.3, with replacement. CO2 is 18, BUN 40 with a creatinine of 1.7. Glucose is 408, magnesium 1.4, calcium 7.7. Troponin is 0.06, BNP 2340, albumin 2.9. Urinalysis on admission was wi thin normal limits. Urine for Legionella and pneumococcus is pending. ASSESSMENT: 1. Acute respiratory failure. This is secondary to pneumonia, likely influenza A; however, bacteria l pneumonia cannot be absolutely excluded. White blood cell count is significantly elevated with a s hift to the left without lymphocytosis suggesting more of a bacterial etiology and chest x-ray appear s to be more focal than diffuse. Interstitial infiltrates are more commonly seen with influenza. In either case, both need to be treated. Her pneumonia is associated with acute respiratory failure re quiring BiPAP support. She is iw-nvv-eufeaytmkvl/ii-rod-fvjzdskv per her wishes previously and the s tated wishes of her daughters' on this admission. 2. Chronic obstructive pulmonary disease. She does have a history of this although no inhaled medic ations are on her [facility] from [facility]. She is currently on DuoNebs and has been given steroids . She is wheezing and congested and both are appropriate. Steroids may make her glucoses significan tly worse. 3. Type 2 diabetes mellitus, with elevated blood sugars on admission. She is on sliding scale cover age. 4. Obesity, with a likely component of restrictive lung disease. Contributing to hypoxemia. 5. Metabolic: Hypokalemia and hypomagnesemia are present. Electrolytes will be replaced per protoc ols. 6. Sepsis. Lactates were mildly elevated on admission. However she was not hypotensive. Fluids srivastava ve been given. CVP can be monitored now that a PICC line has been placed. 7. Deep venous thrombosis prophylaxis. On enoxaparin. 8. GI prophylaxis: On Pepcid. 9. History of chronic renal insufficiency. Creatinine is 1.7. This with a baseline best creatinine of 1.2. PLAN AND RECOMMENDATIONS: The patient will be kept in the intensive care unit. BiPAP support will b e used initially and as needed. DuoNebs will be continued along with Solu-Medrol. Antibiotics will be continued. She is on cefepime and Tamiflu. Azithromycin will be added to her regimen. Glucoses will be followed closely and she will be covered with insulin per protocols. Oral agents can be cont inued. Chemistries will be followed. Electrolytes will be replaced per protocols. A sputum culture will be obtained if possible. Prognosis is guarded at this time. Further plans and recommendations will be made based on her progress over the next 12-24 hours. /[id number]/MODL
--- NOTE | 2016-11-11 15:03 | HOSPPROG ---
Hospitalist Progress Note Assessment/Plan: * Acute on chronic respiratory failure - BIPAP -baseline O2 2-3L * Influenza A -tamiflu * Secondary bacterial PNA with severe sepsis -IV cefepime/azithro * COPD exacerbation -steroids, nebs * Obesity BMI 34 * DM II * Possible LA thrombus -needs RODRIGUEZ - currently respiratory status too tenuous -d/w Dr. Castro - suspicion not high enough to warrant empiric anti-coagulation * Metabolic encephalopathy * Dysphagia - NPO until swallow safe * CKD - unclear baseline Subjective: Obtunded on BIPAP Objective: Vital Signs Temp Pulse Resp BP Pulse Ox 37.3 C 96 38 H 148/75 H 97 11/11/16 14:00 11/11/16 14:00 11/11/16 14:00 11/11/16 14:00 11/11/16 14:00 Laboratory Results 11/11/16 12:15 11/10/16 11/11/16 11/12/16 05:59 05:59 05:59 Intake Total 1500 Balance 1500 - Physical Exam Constitutional: no apparent distress, appears nourished, not in pain Cardiovascular: regular rate and rhythym, no murmur, rub, or gallop Respiratory: no rales or rhonchi, reduced air movement, expiratory wheeze, respiratory distress, rhonchi Gastrointestinal: normoactive bowel sounds, soft, non-tender abdomen, no palpable masses Skin: no rashes or abrasions, no fluctuance, no induration Psychiatric: encephalopathic, poor insight, poor judgement, poor memory, No agitated ICD10 Worksheet Patient Problems: Problems Problem Status Diagnosed CHF (congestive heart failure) Acute Diarrhea Acute Elevated troponin Acute Influenza A Acute Pneumonia Acute Sepsis Acute
[2016-11-11] MEDS: HYDROCODONE/APAP 5/325 TAB PO SCH ×2 (16:11→21:05)
[2016-11-11] MEDS ORDERED: VANCOMYCIN 1.25 GM in D5W 250 ML IV SCH (18:00)
[2016-11-11] MEDS ORDERED: CEFEPIME HCL 1 GM in D5W 50 ML IV SCH (18:00)
--- NOTE | 2016-11-11 18:39 | GPN ---
[f rep st] PROCEDURE NOTE PROCEDURE: Urgent IV access. She has a 20-gauge IV in her left hand. She is currently on BiPAP. Her potassium is low, and her glucose is low. She has a general body habitus. DESCRIPTION OF PROCEDURE: My 1st approach was the right subclavian site. She was appropriately consented (taking advantage of her daughter who is the power of export sales assistant). The right neck and chest was carefully prepped and draped. She was placed in Trendelenburg. The skin was anesthetized. A subclavian approach was attempted. Two passes were unsuccessful. Because of the BiPAP mask, it will be more challenging to place an IJ or supraclavicular. At this point, I opted not to proceed further in this region. Her right groin was now approached. Her pannus was carefully taped in a cephalad and left lateral direction to provide exposure. An ultrasound was used to identify the location of the femoral vein. The surface markings were identified with a marker. The groin was now prepped and draped. A sterile field was again developed. Using a 22, 3-inch spinal needle as a finder, I am able to identify the vein. I am able to then access the vein with the triple-lumen needle and syringe set. After several passes, I am able to access the femoral vein. As I started to pass the guidewire, she developed a prolonged coughing spasm. I lose the access to the vessel, and a large hematoma develops. I am not able to re-access the vein at this point. Direct pressure was held. A PICC line approach is going to be attempted. In the meantime, she is receiving a fluid bolus to facilitate IV access attempts. /[id number]/MODL MTDD
[2016-11-11 18:53] LABS: POTASSIUM 3.2 mEq/L (3.5-5.2)
[2016-11-11] MEDS ORDERED: MINERAL OIL OP SCH (21:00)
[2016-11-11] MEDS ORDERED: [UNRECOGNIZED DRUG - OTHER] OP SCH (21:00)
[2016-11-11] MEDS ORDERED: PETROLATUM OP SCH (21:00)
[2016-11-11] MEDS: glipiZIDE 5 MG TAB PO SCH (21:05)
[2016-11-11] MEDS: hydrOXYzine HCL 10 MG TAB PO SCH (21:05)
[2016-11-11] MEDS: BRIMONIDINE 0.2% 5 ML OPHT.BTL EACHEYE SCH (21:05)
[2016-11-11] MEDS: MEMANTINE HCL 5 MG TAB PO SCH (21:05)
[2016-11-11] MEDS: LATANOPROST 0.005% 2.5 ML OPHT DROPS EACHEYE SCH (21:06)
[2016-11-12 00:15] LABS: POTASSIUM 3.8 mEq/L (3.5-5.2)
[2016-11-12] MEDS: CEFEPIME HCL 1 GM in D5W 50 ML IV SCH ×2 (00:32→23:34)
[2016-11-12] MEDS ORDERED: POTASSIUM Cl (KCl) 50 ML IV ONE ×2 (00:59→09:37)
[2016-11-12] MEDS: INSULIN LISPRO 100 UNIT/ML SC SCH ×5 (01:30→23:35)
[2016-11-12 05:26] LABS: ABSOLUTE NRBC COUNT 0.03 10^3/uL (0-0.01); ADD DIFF? YES; ADD MORPH? NO; ADD SCAN? NO; ATYPICAL LYMPHOCYTE FLAG 60 (0-99); FRAGMENT RBC FLAG 20 (0-99); LEFT SHIFT FLG 60 (0-99); LIPEMIA HEMOLYSIS FLAG 80 (0-99); MEAN CELL HEMOGLOBIN 27.3 pg (27.9-34.1); MEAN CELL HEMOGLOBIN CONCENTR. 32.3 g/dL (32.4-36.7); MEAN CELL VOLUME 84.7 fL (81.5-99.8); MEAN PLATELET VOLUME 12.9 fL (8.7-11.7); NRBC-AUTO% 0.2 % (0.0-0.2); PLATELET CLUMPS FLAG 0 (0-99); PLATELET COUNT 127 10^3/uL (150-400); RED BLOOD CELL COUNT 3.66 10^6/uL (4.18-5.33)
[2016-11-12] MEDS ORDERED: CANN-EASE 2 GM TUBE TP ONE (05:37)
[2016-11-12 05:41] LABS: ANION GAP 10 mEq/L (8-16); CARBON DIOXIDE 20 mEq/l (22-31); CHLORIDE 118 mEq/L (97-110); CREATININE 1.3 mg/dL (0.6-1.0); GLOMERULAR FILTRATION RATE 39; GLUCOSE 216 mg/dL (70-100); MAGNESIUM 2.1 mg/dL (1.6-2.3); POTASSIUM 3.8 mEq/L (3.5-5.2); SODIUM 148 mEq/L (134-144)
[2016-11-12] MEDS: IPRATROPIUM/ALBUTEROL 3 ML DEYVIAL IH SCH ×4 (05:54→19:52)
[2016-11-12] MEDS: methylPREDNISolone SOD SUCC 125 MG/2 ML VIAL IVP SCH ×2 (06:11→13:49)
[2016-11-12 06:26] LABS: PLATELET ESTIMATE ADEQUATE (ADEQ)
[2016-11-12] MEDS ORDERED: NON-FORMULARY NEW DRUG (Tears/Hypromellose [Natural Balance] 2 DROPS) EACHEYE SCH (09:00)
[2016-11-12] MEDS: AZITHROMYCIN IV 500 MG in D5W 250 ML IV SCH (09:15)
[2016-11-12] MEDS: MEMANTINE HCL 5 MG TAB PO SCH ×2 (09:16→20:25)
[2016-11-12] MEDS: FAMOTIDINE 20 MG TAB PO SCH (09:16)
[2016-11-12] MEDS: OSELTAMIVIR 6 MG/ML UDSYR PO SCH ×2 (09:16→17:59)
[2016-11-12] MEDS: HYDROCODONE/APAP 5/325 TAB PO SCH ×4 (09:16→20:25)
[2016-11-12] MEDS: ENOXAPARIN 40 MG/0.4 ML SYR SC SCH (09:16)
[2016-11-12] MEDS: glipiZIDE 5 MG TAB PO SCH (09:20)
[2016-11-12] MEDS: BRIMONIDINE 0.2% 5 ML OPHT.BTL EACHEYE SCH ×2 (09:30→20:26)
--- NOTE | 2016-11-12 11:28 | DX ---
Portable AP chest. 11/12/2016 at 10:37 AM History: Follow-up lung disease. Comparison study: November 11, 2016 Findings: Patchy right lower lobe infiltrate has partially improved from previous study compatible wi th resolving pneumonia. Left lung is clear. Heart size is normal. Feeding tube is new, extending to the distal stomach. Right-sided PICC catheter is stable. Surgical c lips, left axilla. Impression: Decreasing right lower lobe pneumonia.
--- NOTE | 2016-11-12 11:52 | PDINTPN ---
Radiotelegrapher Progress Note Assessment/Plan: Assessment: Acute respiratory failure: Secondary to influenza a and possibly bacterial pneumonia. Cannot rule out aspiration. Staph pneumonia is possible as she does have Staph aureus in blood cultures. Improved clinically since admission and chest x-ray significantly improved. No longer on BiPAP. On low-flow oxygen. Apparently her respiratory status according to her daughters is close to baseline at this point. On Tamiflu, cefepime, azithromycin, and vancomycin. MRSA identification pending, but initial reports suggest it will be negative. Pneumonia: See comments above. Possible COPD. On oxygen at baseline. No inhaled medications [facility]. Morbid obesity. Diabetes mellitus. Glucoses high, on glipizide and insulin. Decubitus: Present on admission. Wound Care to evaluate Abnormal echo: Possible clot versus artifact? in right atrium. Will need a RODRIGUEZ prior to discharge. Did have a nonspecific small elevation of troponin at 0.06. No evidence of ischemia. History of chronic renal insufficiency: Best creatinine in last year's 1.2. Creatinine currently improved on this admission, down to 1.3. Making good urine. History of depression/dementia. Wheelchair-bound. DVT prophylaxis: On enoxaparin. GI prophylaxis: On Pepcid. [facility] this [facility]. Do not resuscitate. Per the patient's advance directives. Plan: Continue care in the ICU. Can use BiPAP again if needed. Continue O2, bronchodilator therapies. Continue present antibiotics. Await further identification of MRSA, cultures, and serologies. Follow lab and chest x-ray. Continue intravenous fluids. RODRIGUEZ at some point prior to discharge. 45 minutes of critical care time spent directly with the patient. Discussed with the patient's daughters, respiratory, nursing, and the ICU multi disciplinary team. Subjective: Looks to voice, follows commands. Moans at times but not answering questions for me at this time. Was earlier than given a small amount of morphine. Objective: Vital Signs Temp Pulse Resp BP Pulse Ox 37.1 C 82 28 H 130/94 H 94 11/12/16 11:12 11/12/16 11:12 11/12/16 11:12 11/12/16 11:12 11/12/16 11:12 Laboratory Results 11/12/16 05:06 11/12/16 05:06 11/11/16 11/12/16 11/13/16 05:59 05:59 05:59 Intake Total 1500 2859 Output Total 1475 Balance 1500 1384 Blood cultures: Positive for Staph aureus, does not look like it is MRSA CXR: Significantly improved right lower lobe infiltrate. Otherwise relatively normal. Physical Exam - Physical Exam General Appearance: mild distress, obese EENT: other (On 3 L OxyMask, 94%) Neck: normal inspection (Large neck. No obvious jugular venous distension), No lymphadenopathy (R), No lymphadenopathy (L), No thyromegaly Respiratory: decreased breath sounds (Coarse breath sounds bilaterally with some rales, central congestion, some wheezing), rales, wheezing, No rhonchi Cardiac/Chest: regular rate, rhythm (Distant heart tones. No obvious gallop.) Abdomen: normal bowel sounds (Obese), non-tender, soft, other (Small bore NG tube in place, being used for medications.) Pelvic Exam: other (Andujar catheter in place, good urine output. Input greater than output since admission.) Skin: warm/dry, pallor, other (Some redness, excoriations around buttocks, present on admission. Wound Care to evaluate.) Extremities: pedal edema Neuro/Psych: no motor/sensory deficits (Moves all extremities), cognition abnormalities (Nonverbal, confused but will respond to simple commands.) ICD10 Worksheet Patient Problems: Problems Problem Status Diagnosed CHF (congestive heart failure) Acute Diarrhea Acute Elevated troponin Acute Influenza A Acute Pneumonia Acute Sepsis Acute
--- NOTE | 2016-11-12 12:27 | WOCRNPDOC ---
WOCRN Advanced Assessment Note - Skin Integrity Problem, Advanced Assess Bilateral Buttock Dressing Type: Allevyn Life Dressing Description: Intact Exudate Amount: None Exudate Characteristic(s): None Integumentary Issue Intervention: Dressing Removed (from R buttock), Visualized Under Dressing (dressing left on L buttock) Nancy Wound Tissue: Blanching, Erythema, Denuded Nancy Wound Swelling: Mild Wound Bed Color: Red Site Measurement - Head-to-Toe Length X Width X Depth (cm): 1.4cmx0.9cmx0.1cm Skin Integrity Problem Comment: Shallow, abrasion-like wound noted on L buttock , consistent in appearance w/ friction injury. Nancy-wound tissue appearance consistent with incontinence-associated dermatitis, w/ denuded skin and erythema noted. No wound noted on R buttock, and tissue appearance consistent w / L buttock. Advise application of dimethicone skin protectant on R, protective dressing on L, as well as orders to off-load buttocks, turning side to side while in bed. refrigeration technician Krystina present and assisting. Right Upper Arm Dressing Type: Open to Air Exudate Amount: None Exudate Characteristic(s): None Nancy Wound Swelling: None Wound Bed Color: Purple Site Measurement - Head-to-Toe Length X Width X Depth (cm): [id number] Skin Integrity Problem Comment: Linear bruise noted to RUE, adjacent to PICC line and extending from lateral aspect of arm to medial. No associated swelling noted, and skin is presently intact. Unable to discern etiology of ecchymosis. Site BLOCK GREASER w/ no device exerting pressure on this site at this time. Continue to monitor site for indication of possible pressure injury. Right Groin Dressing Type: Tegaderm Film, Telfa Exudate Amount: Scant Exudate Color: Red Exudate Characteristic(s): Bloody Integumentary Issue Intervention: Dressing Removed Nancy Wound Tissue: Denuded Nancy Wound Swelling: Mild Wound Bed Color: Red Skin Integrity Problem Comment: Red, denuded moist desquamation noted in R groin fold, consistent in appearance w/ intertriginous dermatitis r/t excessive moisture. There was a tegaderm and Telfa over a groin access site; upon removal , no bleeding was noted, and there is a small area of ecchymosis immediately adjacent to puncture site. Placed Interdry sheet to help manage moisture. refrigeration technicianRODRI Flaherty present and assisting. Right Pannus Dressing Type: Open to Air Exudate Amount: None Exudate Characteristic(s): None Nancy Wound Tissue: Denuded Nancy Wound Swelling: None Wound Bed Color: Red Site Odor: None Skin Integrity Problem Comment: Raw, denuded skin noted in R pannus, consistent in appearance w/ intertriginous dermatitis. Shallow, linear opening along the length of pannus crease. This is r/t execessive moisture and friction. Interdry sheet placed in fold to help manage moisture/friction. Bilateral Upper Medial Thigh Dressing Type: Open to Air Exudate Amount: None Exudate Characteristic(s): None Nancy Wound Tissue: Blanching, Erythema, Intact Nancy Wound Swelling: Mild Wound Bed Color: Red Skin Integrity Problem Comment: Blanching erythema and indentations noted on bilateral upper thighs, linear in appearance r/t to pressure from catheter tubing. Concerned about patient developing pressure injury. Advised refrigeration technicianRODRI Flaherty to place an Allevyn Life dressing on each medial/upper thigh to protect underlying tissue and off-load pressure.
[2016-11-12] MEDS ORDERED: D50W 25 GM/50 ML SYR IVP PRN (14:06)
[2016-11-12] MEDS ORDERED: NS 1,000 ML IV SCH (14:15)
--- NOTE | 2016-11-12 14:30 | HOSPPROG ---
Hospitalist Progress Note Assessment/Plan: * Acute on chronic respiratory failure -stable off BIPAP -baseline O2 2-3L * Influenza A -tamiflu * Secondary bacterial PNA with severe sepsis -IV cefepime/azithro/IV Vanco -blood cultures positive staph - consult ID * COPD exacerbation -steroids, nebs * Obesity BMI 34 * DM II - on insulin gtt -reduce steroids -start Lantus and DC drip * Possible LA thrombus -needs RODRIGUEZ - currently respiratory status too tenuous -d/w Dr. Castro - suspicion not high enough to warrant empiric anti-coagulation * Metabolic encephalopathy * Dysphagia - NPO until swallow safe * CKD - suspect baseline Subjective: Much better, waking up, breathing easier Objective: Vital Signs Temp Pulse Resp BP Pulse Ox 36.5 C 79 28 H 117/52 L 96 11/12/16 13:00 11/12/16 13:00 11/12/16 13:00 11/12/16 13:00 11/12/16 13:00 Laboratory Results 11/12/16 05:06 11/12/16 05:06 11/11/16 11/12/16 11/13/16 05:59 05:59 05:59 Intake Total 1500 2859 Output Total 1475 Balance 1500 1384 improved RLL pneumonia d/w Dr. Fitzpatrick - ICU rounds - Physical Exam Constitutional: no apparent distress, appears nourished, not in pain Cardiovascular: regular rate and rhythym, no murmur, rub, or gallop Respiratory: expiratory wheeze, inspiratory crackles, No respiratory distress, No rhonchi Gastrointestinal: normoactive bowel sounds, soft, non-tender abdomen, no palpable masses Skin: no rashes or abrasions, no fluctuance, no induration Neurologic: No AAOx3 Psychiatric: encephalopathic, poor insight, poor judgement, poor memory, No anxious, No agitated ICD10 Worksheet Patient Problems: Problems Problem Status Diagnosed CHF (congestive heart failure) Acute Diarrhea Acute Elevated troponin Acute Influenza A Acute Pneumonia Acute Sepsis Acute
[2016-11-12] MEDS ORDERED: VANCOMYCIN 1.25 GM in D5W 250 ML IV SCH (15:00)
[2016-11-12 15:19] LABS: POTASSIUM 4.9 mEq/L (3.5-5.2)
[2016-11-12] MEDS: LEVALBUTEROL 1.25 MG/3 ML DEYVIAL IH PRN (17:58)
[2016-11-12] MEDS: INSULIN REGULAR HUMAN 100 UNIT/ML SC SCH ×2 (17:59→21:42)
[2016-11-12] MEDS ORDERED: INSULIN REGULAR HUMAN 100 UNIT/ML IVP ONE (18:00)
[2016-11-12 18:09] LABS: GLUCOSE 357 mg/dL (70-100); POTASSIUM 4.7 mEq/L (3.5-5.2)
[2016-11-12] MEDS ORDERED: FUROSEMIDE 40 MG/4 ML VIAL IVP ONE (19:32)
[2016-11-12] MEDS: BUDESONIDE 0.5 MG/2 ML AMPUL.NEB IH SCH (19:51)
[2016-11-12] MEDS: hydrOXYzine HCL 10 MG TAB PO SCH (20:24)
[2016-11-12] MEDS: LATANOPROST 0.005% 2.5 ML OPHT DROPS EACHEYE SCH (20:26)
[2016-11-12] MEDS ORDERED: INSULIN GLARGINE 100 UNITS/ML SYRINGE SC SCH (21:00)
[2016-11-13] MEDS ORDERED: INSULIN LISPRO 100 UNIT/ML SC SCH (02:00)
[2016-11-13] MEDS: INSULIN LISPRO 100 UNIT/ML SC SCH ×6 (02:14→21:39)
[2016-11-13] MEDS: IPRATROPIUM/ALBUTEROL 3 ML DEYVIAL IH SCH ×4 (05:27→22:47)
[2016-11-13 06:40] LABS: ALANINE AMINOTRANSFERASE 31 IU/L (9-52); ALBUMIN 2.9 g/dL (3.5-5.0); ALKALINE PHOSPHATASE 95 IU/L (38-126); ANION GAP 10 mEq/L (8-16); ASPARTATE AMINOTRANSFERASE 20 IU/L (14-46); BILIRUBIN,TOTAL 0.5 mg/dL (0.1-1.4); CALCIUM 8.6 mg/dL (8.5-10.4); CARBON DIOXIDE 19 mEq/l (22-31); CHLORIDE 119 mEq/L (97-110); CREATININE 1.4 mg/dL (0.6-1.0); GLOMERULAR FILTRATION RATE 35; GLUCOSE 58 mg/dL (70-100); POTASSIUM 3.7 mEq/L (3.5-5.2); SODIUM 148 mEq/L (134-144); TOTAL PROTEIN 6.6 g/dL (6.3-8.2)
[2016-11-13] MEDS ORDERED: POTASSIUM Cl (KCl) 50 ML IV ONE (06:46)
[2016-11-13 07:47] LABS: ABSOLUTE NRBC COUNT 0.07 10^3/uL (0-0.01); ADD DIFF? YES; ADD MORPH? NO; ADD SCAN? NO; ATYPICAL LYMPHOCYTE FLAG 50 (0-99); FRAGMENT RBC FLAG 20 (0-99); HEMATOCRIT 30.7 % (38.0-47.0); LEFT SHIFT FLG 80 (0-99); LIPEMIA HEMOLYSIS FLAG 80 (0-99); MEAN CELL HEMOGLOBIN 27.8 pg (27.9-34.1); MEAN CELL HEMOGLOBIN CONCENTR. 32.6 g/dL (32.4-36.7); MEAN CELL VOLUME 85.3 fL (81.5-99.8); MEAN PLATELET VOLUME 13.3 fL (8.7-11.7); NRBC-AUTO% 0.4 % (0.0-0.2); PLATELET CLUMPS FLAG 20 (0-99); PLATELET COUNT 132 10^3/uL (150-400); RED CELL DISTRIBUTION WIDTH 15.4 % (11.5-15.2)
[2016-11-13] MEDS ORDERED: INSULIN GLARGINE 100 UNITS/ML SYRINGE SC SCH (08:19)
[2016-11-13 08:49] LABS: PLATELET ESTIMATE DECREASED (ADEQ)
[2016-11-13 08:50] LABS: LARGE PLATELETS PRESENT
--- NOTE | 2016-11-13 09:31 | DX ---
Portable AP Upright Chest, at 6:05 AM on November 13, 2016 Clinical History: 86-year-old female inpatient for follow up of respiratory status. Comparison Study: Chest, dated November 12, 2016. Findings: In the interim, the Dobbhoff feeding tube has been removed. The right-sided PICC line is st able in position, terminating in the SVC. There are surgical clips projected over the left axilla. Th e patient's chin overlies the lung apices. The cardiac silhouette is at the upper limits of normal, g iven the portable AP technique. There is peribronchial thickening. There is some mild bibasilar subse gmental atelectasis. There is no pleural effusion or pneumothorax. Impression: Peribronchial thickening, with mild bibasilar subsegmental atelectasis.
[2016-11-13] MEDS: OSELTAMIVIR 6 MG/ML UDSYR PO SCH ×2 (09:38→17:08)
[2016-11-13] MEDS: MEMANTINE HCL 5 MG TAB PO SCH ×2 (09:39→20:58)
[2016-11-13] MEDS: ENOXAPARIN 40 MG/0.4 ML SYR SC SCH (09:39)
[2016-11-13] MEDS: predniSONE 20 MG TAB PO SCH (09:39)
[2016-11-13] MEDS: FAMOTIDINE 20 MG TAB PO SCH (09:39)
[2016-11-13] MEDS: HYDROCODONE/APAP 5/325 TAB PO SCH ×3 (09:39→21:34)
[2016-11-13] MEDS: BRIMONIDINE 0.2% 5 ML OPHT.BTL EACHEYE SCH ×2 (09:44→20:39)
[2016-11-13] MEDS: AZITHROMYCIN IV 500 MG in D5W 250 ML IV SCH (09:48)
[2016-11-13 10:22] LABS: HEMOGLOBIN A1C 12.2 % (4.0-6.0)
[2016-11-13] MEDS: BUDESONIDE 0.5 MG/2 ML AMPUL.NEB IH SCH ×2 (11:31→22:47)
--- NOTE | 2016-11-13 12:59 | HOSPPROG ---
Hospitalist Progress Note Assessment/Plan: * Acute on chronic respiratory failure -stable off BIPAP -baseline O2 2-3L * Influenza A -tamiflu * Secondary bacterial PNA with severe sepsis - MSSA + blood cultures -IV ancef/azithro * COPD exacerbation -steroids, nebs * Obesity BMI 34 * DM II - very hyperglycemic on IV steroids - improved on PO prednisone -home glipizide -HgA1c pending * Possible LA thrombus -RODRIGUEZ when respiratory status improved -d/w Dr. Castro - suspicion not high enough to warrant empiric anti-coagulation * Metabolic encephalopathy - improving * Dysphagia - NPO until swallow safe -tube feeds * CKD - suspect baseline * Hypernatremia - add free H2O down tube Subjective: Woke up and was very appropriate with family last night. Today a little more confused and tired again. Objective: Vital Signs Temp Pulse Resp BP Pulse Ox 36.7 C 83 20 139/57 H 91 L 11/13/16 07:35 11/13/16 11:30 11/13/16 11:30 11/13/16 07:35 11/13/16 11:30 Laboratory Results 11/13/16 06:00 11/13/16 06:00 11/12/16 11/13/16 11/14/16 05:59 05:59 05:59 Intake Total 2859 1914.3 Output Total 1475 1350 Balance 1384 564.3 - Physical Exam Constitutional: no apparent distress, appears nourished, not in pain Cardiovascular: regular rate and rhythym, no murmur, rub, or gallop Respiratory: no respiratory distress, no rales or rhonchi, clear to auscultation Gastrointestinal: normoactive bowel sounds, soft, non-tender abdomen, no palpable masses Skin: no rashes or abrasions, no fluctuance, no induration Psychiatric: encephalopathic, flat affect, poor insight, poor judgement, poor memory, other (appears very fatigued), No agitated ICD10 Worksheet Patient Problems: Problems Problem Status Diagnosed CHF (congestive heart failure) Acute Diarrhea Acute Elevated troponin Acute Influenza A Acute Pneumonia Acute Sepsis Acute
--- NOTE | 2016-11-13 12:59 | GCON ---
[f rep st] CONSULTATION INPATIENT INFECTIOUS DISEASE CONSULTATION. REFERRING PHYSICIAN: Jocelyne Clark MD REASON FOR CONSULTATION: Staph aureus bacteremia in patient with influenza. 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 She was foun d at [facility] to be infected with influenza A and was started on oseltamivir a couple of days pr ior to admission. However, she had worsening respiratory status as well as mental status, and this i s what started her transfer to the emergency room. The patient was clearly septic in the emergency r oom. She was resuscitated and admitted to the ICU. She continued oseltamivir and was covered broadl y with vancomycin, cefepime, and azithromycin for secondary bacterial pneumonia issues. Blood cultur es drawn initially on presentation, on 11/11, turned positive for methicillin-sensitive Staph aureus. We are consulted to determine antibiotic treatment and duration of course. The patient is currentl y resting comfortably in her hospital bed. She is not on any supplemental oxygen. Two daughters are in the room. Both family members state that the patient is remarkably better today than her admissi on on November 11. PAST MEDICAL HISTORY: 1. Hypertension. 2. Gastroesophageal reflux disease. 3. Chronic obstructive pulmonary disease. 4. Diabetes mellitus type 2. 5. Chronic kidney disease. 6. Glaucoma. PAST SURGICAL HISTORY: None noted. ANTIBIOTICS: 1. Vancomycin. 2. Cefepime. 3. Azithromycin. ALLERGIES: Patient is allergic to penicillins, adhesive tape, codeine and IV dye. SOCIAL HISTORY: Patient is a resident of [facility] for 4 years. No tobacco or alcohol or drug u se noted. She has a supportive family. FAMILY HISTORY: Reviewed but noncontributory. REVIEW OF SYSTEMS: Other than that detailed above in history of present illness, a comprehensive 10- system review is negative. PHYSICAL EXAMINATION: VITAL SIGNS: Temperature maximum is 37.2, temperature current 36.7, heart rat e is 88, respiratory rate is 26, blood pressure is 139/57. GENERAL: The patient is a well-formed, w ell-nourished, elderly female, who is sleeping. She does not appear to be in any acute distress. Sh e is not toxic in appearance. She is resting comfortably. HEENT: Normocephalic for age. Atraumati c. No scleral icterus. No oral lesion or drainage from the nares. Eyes: Lids and conjunctivae wit hin normal limits. Pupils are equal and round bilaterally. NECK: Supple without meningismus. LUNG S: Clear to auscultation on the right. Some coarse breath sounds on the left. Good effort. HEART: Regular rate and rhythm. No murmur, rub, or gallop noted. No significant peripheral edema. SKIN: Warm and dry to the touch. No rash or lesion noted. MUSCULOSKELETAL: No muscle tenderness is not ed. No joint line effusion or arthritis is seen. NEURO: Cranial nerves 2-12 seem to be intact. Pe ripheral sensation seems intact in the extremities. LABORATORY DATA: The patient has a CBC dated 11/13/2016 that shows a white blood cell count 17.6, he moglobin of 10.0, hematocrit 30.7, platelet count of 132. Differential is mildly left-shifted. Seru m chemistries on 11/13/2016 show sodium 148, potassium 3.7, chloride 119, bicarbonate 19, BUN of 39, and creatinine of 1.4. Urine Legionella antigen as well as urine strep pneumo antigen are pending. MICROBIOLOGIC DATA: The patient has blood cultures dated 11/11/2016, 2 out of 2 sets are positive fo r methicillin-sensitive Staph aureus. ASSESSMENT: 1. Influenza A. The patient will continue on oseltamivir for a total of 5 days. She appears to lik dave have secondary bacterial pneumonia. Methicillin-sensitive Staph aureus is likely the probable ca uses as this is the only clear source of bacteremia. 2. Bacteremia secondary to Methicillin-sensitive Staphylococcus aureus. The patient does not need b road coverage including vancomycin at this point. We will discontinue the vancomycin and cefepime, a nd consolidate this to cefazolin 1 g IV q.8 hours. With her mild renal dysfunction, this should be w ell tolerated. We will continue azithromycin just to cover possible respiratory pathogens as well. 3. Coccyx or gluteal wound. Evaluated already by Wound Care. We will continue recommended wound ca re protocol. PLAN: 1. Discontinue vancomycin and cefepime. 2. Start Ancef 1 g IV q.8 hours. 3. Continue azithromycin. 4. Follow her clinical progress and repeat blood cultures today. /[id number]/MODL
[2016-11-13] MEDS: 1/2 NS 1,000 ML IV SCH (14:12)
[2016-11-13 15:03] LABS: POTASSIUM 3.8 mEq/L (3.5-5.2)
[2016-11-13] MEDS: LATANOPROST 0.005% 2.5 ML OPHT DROPS EACHEYE SCH (20:52)
[2016-11-13] MEDS: ARIPiprazole 2 MG TAB PO SCH (20:54)
[2016-11-13] MEDS: hydrOXYzine HCL 10 MG TAB PO SCH (20:56)
[2016-11-13] MEDS: glipiZIDE 5 MG TAB PO SCH (21:34)
[2016-11-13 21:43] LABS: POTASSIUM 3.5 mEq/L (3.5-5.2)
[2016-11-14] MEDS: INSULIN LISPRO 100 UNIT/ML SC SCH ×3 (01:28→09:23)
[2016-11-14] MEDS: 1/2 NS 1,000 ML IV SCH ×2 (06:00→15:22)
[2016-11-14 06:19] LABS: ANION GAP 11 mEq/L (8-16); CALCIUM 8.1 mg/dL (8.5-10.4); CARBON DIOXIDE 21 mEq/l (22-31); CHLORIDE 116 mEq/L (97-110); CREATININE 1.3 mg/dL (0.6-1.0); GLOMERULAR FILTRATION RATE 39; GLUCOSE 129 mg/dL (70-100); MAGNESIUM 1.7 mg/dL (1.6-2.3); POTASSIUM 3.4 mEq/L (3.5-5.2); SODIUM 148 mEq/L (134-144)
[2016-11-14 06:58] LABS: ABSOLUTE NRBC COUNT 0.03 10^3/uL (0-0.01); ADD DIFF? YES; ADD MORPH? NO; ATYPICAL LYMPHOCYTE FLAG 30 (0-99); FRAGMENT RBC FLAG 30 (0-99); HEMATOCRIT 27.4 % (38.0-47.0); HEMOGLOBIN 9.1 g/dL (12.6-16.3); LIPEMIA HEMOLYSIS FLAG 80 (0-99); MEAN CELL HEMOGLOBIN 27.7 pg (27.9-34.1); MEAN CELL HEMOGLOBIN CONCENTR. 33.2 g/dL (32.4-36.7); MEAN CELL VOLUME 83.5 fL (81.5-99.8); MEAN PLATELET VOLUME 12.5 fL (8.7-11.7); NRBC-AUTO% 0.2 % (0.0-0.2); PLATELET CLUMPS FLAG 10 (0-99); PLATELET COUNT 126 10^3/uL (150-400); RED BLOOD CELL COUNT 3.28 10^6/uL (4.18-5.33); RED CELL DISTRIBUTION WIDTH 15.5 % (11.5-15.2)
[2016-11-14 07:04] LABS: ADD SCAN? NO; LEFT SHIFT FLG 110 (0-99)
[2016-11-14 07:21] LABS: PLATELET ESTIMATE DECREASED (ADEQ)
[2016-11-14 07:22] LABS: LARGE PLATELETS PRESENT; MACROCYTES 1+; POLYCHROMASIA 1+
[2016-11-14] MEDS: OSELTAMIVIR 6 MG/ML UDSYR PO SCH ×2 (07:36→18:37)
[2016-11-14] MEDS: ENOXAPARIN 40 MG/0.4 ML SYR SC SCH (07:36)
[2016-11-14] MEDS: BRIMONIDINE 0.2% 5 ML OPHT.BTL EACHEYE SCH ×2 (07:36→22:32)
[2016-11-14] MEDS: AZITHROMYCIN IV 500 MG in D5W 250 ML IV SCH (07:36)
[2016-11-14] MEDS: MEMANTINE HCL 5 MG TAB PO SCH ×2 (07:37→21:28)
[2016-11-14] MEDS: FAMOTIDINE 20 MG TAB PO SCH (07:37)
[2016-11-14] MEDS: predniSONE 20 MG TAB PO SCH (07:37)
[2016-11-14] MEDS: HYDROCODONE/APAP 5/325 TAB PO SCH ×3 (07:37→22:31)
[2016-11-14] MEDS: IPRATROPIUM/ALBUTEROL 3 ML DEYVIAL IH SCH ×4 (08:19→22:09)
[2016-11-14] MEDS: glipiZIDE 5 MG TAB PO SCH ×2 (09:23→21:28)
[2016-11-14] MEDS: BUDESONIDE 0.5 MG/2 ML AMPUL.NEB IH SCH ×2 (10:56→22:09)
[2016-11-14] MEDS ORDERED: PROTOCOL POTASSIUM 1 DOSE MISC PRN (14:58)
--- NOTE | 2016-11-14 15:01 | HOSPPROG ---
Hospitalist Progress Note Assessment/Plan: * Acute on chronic respiratory failure -stable off BIPAP -baseline O2 2-3L * Influenza A -tamiflu * Secondary bacterial PNA with severe sepsis - MSSA + blood cultures -IV ancef/azithro * COPD exacerbation -steroids, nebs * Obesity BMI 34 * DM II - very hyperglycemic on IV steroids - improved on PO prednisone -home glipizide -HgA1c 12.2 * Possible LA thrombus -RODRIGUEZ when respiratory status improved -d/w Dr. Castro - suspicion not high enough to warrant empiric anti-coagulation * Metabolic encephalopathy - improving * Dysphagia - NPO until swallow safe * CKD - suspect baseline * Hypernatremia - change IVF 10/02 NS Subjective: No new complaints. Objective: Vital Signs Temp Pulse Resp BP Pulse Ox 36.7 C 97 20 163/87 H 93 11/14/16 13:09 11/14/16 13:09 11/14/16 13:09 11/14/16 13:09 11/14/16 13:09 Laboratory Results 11/14/16 04:30 11/14/16 04:30 11/13/16 11/14/16 11/15/16 05:59 05:59 05:59 Intake Total 1914.3 2091 Output Total 1350 1175 Balance 564.3 916 - Physical Exam Constitutional: no apparent distress, appears nourished, not in pain Cardiovascular: regular rate and rhythym, no murmur, rub, or gallop Respiratory: no respiratory distress, no rales or rhonchi, clear to auscultation Gastrointestinal: normoactive bowel sounds, soft, non-tender abdomen, no palpable masses Skin: no rashes or abrasions, no fluctuance, no induration Neurologic: weakness, No AAOx3 Psychiatric: encephalopathic, poor insight, poor judgement, poor memory, No anxious, No agitated ICD10 Worksheet Patient Problems: Problems Problem Status Onset CHF (congestive heart failure) Acute Elevated troponin Acute Influenza A Acute Pneumonia Acute Sepsis Acute Diarrhea Acute
[2016-11-14 16:01] LABS: POTASSIUM 3.5 mEq/L (3.5-5.2)
--- NOTE | 2016-11-14 17:11 | PCMIDPN ---
Assessment/Plan: # Severe sepsis secondary to influenza and secondary bacterial pneumonia associated with MSSA bacteremia with underlying chronic respiratory failure due to COPD/obesity. Respiratory status has improved as patient with normal O2 sats on room air. Marked leukocytosis since admission, but slightly improved. improvement complicated by steroid use -- adjust dose of Ancef to 2 g IV Q 8 with improving renal function -- discontinue azithromycin Medications Prednisone 40 mg daily Azithromycin 500 mg daily, # 4 Ancef 1 g IV Q 8 microbiology 11/13 blood culture 1 set: Pending 11/11 blood cultures (): MSSA Legionella urinary antigen negative Subjective: patient wakes up to tactile stimulation denies pain, does complain of cough Objective: Vital Signs Temp Pulse Resp BP Pulse Ox 36.7 C 92 20 169/83 H 95 11/14/16 15:38 11/14/16 16:20 11/14/16 16:20 11/14/16 15:38 11/14/16 16:20 Laboratory Results 11/14/16 04:30 11/14/16 15:24 11/13/16 11/14/16 11/15/16 05:59 05:59 05:59 Intake Total 1914.3 2091 Output Total 1350 1175 Balance 564.3 916 - Physical Exam General Appearance: alert, no apparent distress, obese Respiratory: wheezing, coarse breath sounds, No accessory muscle use Neck: supple Cardiac/Chest: tachycardia Extremities: pedal edema Abdomen: normal bowel sounds, non-tender, soft, No distended Skin: warm/dry, pallor, No diaphoresis, No rash Neuro/Psych: other ( sleepy but arousable, somewhat confused) - Line/s RUE PICC Lines: No drainage, No erythema ICD10 Worksheet Patient Problems: Problems Problem Status Onset CHF (congestive heart failure) Acute Elevated troponin Acute Influenza A Acute Pneumonia Acute Sepsis Acute Diarrhea Acute
[2016-11-14] MEDS: hydrOXYzine HCL 10 MG TAB PO SCH (21:28)
[2016-11-14] MEDS ORDERED: ceFAZolin 2 GM/DEXTROSE 100 ML IV SCH (22:00)
[2016-11-14] MEDS: ceFAZolin 2 GM in D5W 100 ML IV SCH (22:31)
[2016-11-14] MEDS: LATANOPROST 0.005% 2.5 ML OPHT DROPS EACHEYE SCH (22:33)
[2016-11-15] MEDS: IPRATROPIUM/ALBUTEROL 3 ML DEYVIAL IH SCH ×4 (05:15→21:54)
[2016-11-15 05:42] LABS: ABSOLUTE NRBC COUNT 0.07 10^3/uL (0-0.01); ADD DIFF? YES; ADD MORPH? NO; ATYPICAL LYMPHOCYTE FLAG 20 (0-99); FRAGMENT RBC FLAG 20 (0-99); HEMATOCRIT 26.8 % (38.0-47.0); HEMOGLOBIN 8.9 g/dL (12.6-16.3); LIPEMIA HEMOLYSIS FLAG 80 (0-99); MEAN CELL HEMOGLOBIN 27.5 pg (27.9-34.1); MEAN CELL HEMOGLOBIN CONCENTR. 33.2 g/dL (32.4-36.7); MEAN CELL VOLUME 82.7 fL (81.5-99.8); NRBC-AUTO% 0.5 % (0.0-0.2); PLATELET CLUMPS FLAG 10 (0-99); PLATELET COUNT 127 10^3/uL (150-400); RED BLOOD CELL COUNT 3.24 10^6/uL (4.18-5.33); RED CELL DISTRIBUTION WIDTH 15.5 % (11.5-15.2)
[2016-11-15 05:43] LABS: ADD SCAN? NO; LEFT SHIFT FLG 140 (0-99)
[2016-11-15 05:57] LABS: ANION GAP 8 mEq/L (8-16); CALCIUM 8.1 mg/dL (8.5-10.4); CARBON DIOXIDE 19 mEq/l (22-31); CHLORIDE 112 mEq/L (97-110); CREATININE 1.1 mg/dL (0.6-1.0); GLOMERULAR FILTRATION RATE 47; GLUCOSE 287 mg/dL (70-100); MAGNESIUM 1.6 mg/dL (1.6-2.3); POTASSIUM 3.3 mEq/L (3.5-5.2); SODIUM 139 mEq/L (134-144)
[2016-11-15 06:09] LABS: LARGE PLATELETS PRESENT; PLATELET ESTIMATE DECREASED (ADEQ); POLYCHROMASIA 1+
[2016-11-15] MEDS: ceFAZolin 2 GM in D5W 100 ML IV SCH ×3 (06:29→21:26)
[2016-11-15] MEDS ORDERED: POTASSIUM CL 10 MEQ TAB PO ONE (07:49)
--- NOTE | 2016-11-15 08:31 | WOCRNPDOC ---
WOCRN Advanced Assessment Note - Skin Integrity Problem, Advanced Assess Bilateral Buttock Dressing Type: Allevyn Life Dressing Description: Saturated Exudate Amount: None Exudate Characteristic(s): None Integumentary Issue Intervention: Dressing Removed, Lotion/Cream Applied Nancy Wound Tissue: Blanching, Erythema Wound Bed Color: Red Skin Integrity Problem Comment: Raw, denuded skin r/t incontinence-associated dermatitis/friction, site improved since previous assessment. Satellite lesions resolving, and epithelialization noted on L buttock. DC Allevyn dressing to site , as patient no longer has a Andujar and per nurse is almost constantly moist due to incontinence. Advised to apply Calazime cream across buttocks to protect skin. acid concentratorRODRI Berg present and assisting. Right Groin Dressing Type: Interdry Dressing Description: Clean/Dry Exudate Amount: None Exudate Characteristic(s): None Nancy Wound Tissue: Intact Nancy Wound Swelling: None Wound Bed Color: Red Skin Integrity Problem Comment: Site resolving since previous assessment, and shallow, linear lesion in fold is now epithelializing. Continue w/ Interdry per order, and keep patient's skin dry. Right Pannus Dressing Type: Interdry Dressing Description: Clean/Dry Exudate Amount: None Exudate Characteristic(s): None Nancy Wound Tissue: Intact Nancy Wound Swelling: None Wound Bed Color: Red Skin Integrity Problem Comment: Intertriginous dermatitis in pannus crease is improved, w/ decreased erythema. Shallow, linear wound at base is epithelializing, and no exudate was noted. Continue w/ Interdry, and keep patient's pannus and groin folds as dry as possible to prevent breakdown. acid concentratorRODRI Berg present and assisting.
[2016-11-15] MEDS: OSELTAMIVIR 6 MG/ML UDSYR PO SCH ×2 (08:46→18:19)
[2016-11-15] MEDS: ENOXAPARIN 40 MG/0.4 ML SYR SC SCH (09:00)
[2016-11-15] MEDS: predniSONE 20 MG TAB PO SCH (09:02)
[2016-11-15] MEDS: BUDESONIDE 0.5 MG/2 ML AMPUL.NEB IH SCH ×2 (09:12→21:54)
[2016-11-15] MEDS: LEVALBUTEROL 1.25 MG/3 ML DEYVIAL IH PRN (09:13)
[2016-11-15] MEDS: HYDROCODONE/APAP 5/325 TAB PO SCH ×3 (09:51→21:25)
[2016-11-15] MEDS: glipiZIDE 5 MG TAB PO SCH ×2 (09:51→19:46)
[2016-11-15] MEDS: FAMOTIDINE 20 MG TAB PO SCH (09:52)
[2016-11-15] MEDS ORDERED: POTASSIUM CL 20 MEQ TAB PO ONE (10:00)
[2016-11-15] MEDS ORDERED: POTASSIUM CL 20 MEQ/15 ML UDCUP PO ONE (10:00)
[2016-11-15] MEDS: MEMANTINE HCL 5 MG TAB PO SCH ×2 (10:46→19:45)
[2016-11-15] MEDS: BRIMONIDINE 0.2% 5 ML OPHT.BTL EACHEYE SCH ×2 (10:49→19:50)
[2016-11-15] MEDS ORDERED: guaiFENesin/CODEINE PHOS 10 ML UDCUP PO PRN (12:44)
--- NOTE | 2016-11-15 12:47 | PCMIDPN ---
Assessment/Plan: # Severe sepsis secondary to influenza and secondary bacterial pneumonia associated with MSSA bacteremia with underlying chronic respiratory failure due to COPD/obesity. Respiratory status has improved as patient with normal O2 sats on room air, hemodynamics stabilized. Marked leukocytosis on admission, but slowing improving daily, although improvement in wbc complicated by steroid use -- Ancef @ 2 g IV Q 8, creatinine clearance 59, cutoff for 2 g q.12h is 50 so patient is borderline. If creatinine goes back up, decrease to Q 12 dosing -- PICC line placed 11/11, will need to be exchanged as placed when patient was bacteremia --Tamiflu completes tomorrow Medications, antibiotics # 4 Prednisone 40 mg daily Ancef 2 g IV Q 8 Tamiflu 30 mg p.o. twice daily, # 4 microbiology 11/14 blood cultures 2 sets: Pending 11/13 blood culture 1 set: NGTD 11/11 blood cultures (): MSSA Legionella urinary antigen negative Subjective: No specific events overnight Objective: Vital Signs Temp Pulse Resp BP Pulse Ox 36.6 C 91 22 H 168/91 H 92 11/15/16 08:00 11/15/16 09:15 11/15/16 09:15 11/15/16 08:00 11/15/16 09:15 Laboratory Results 11/15/16 04:52 11/14/16 11/15/16 11/16/16 05:59 05:59 05:59 Intake Total 2091 348 1121 Output Total 1175 Balance 775 385 9582 - Physical Exam General Appearance: obese, other (Sleepy but arousable) EENT: dry mucous membranes, poor dentition Respiratory: wheezing, No accessory muscle use Neck: supple Cardiac/Chest: regular rate, rhythm Extremities: pedal edema Abdomen: normal bowel sounds, non-tender, soft, No distended Pelvic Exam: No betts Skin: pallor, No rash - Line/s RUE PICC Lines: No drainage, No erythema ICD10 Worksheet Patient Problems: Problems Problem Status Onset CHF (congestive heart failure) Acute Elevated troponin Acute Influenza A Acute Pneumonia Acute Sepsis Acute Diarrhea Acute
[2016-11-15 13:01] LABS: POTASSIUM 3.1 mEq/L (3.5-5.2)
[2016-11-15] MEDS ORDERED: GUAIFENESIN/DM 10 ML UDCUP PO PRN (13:17)
[2016-11-15] MEDS ORDERED: D50W 25 GM/50 ML SYR IVP PRN (17:37)
--- NOTE | 2016-11-15 17:41 | HOSPPROG ---
Hospitalist Progress Note Assessment/Plan: * Acute on chronic respiratory failure -stable off BIPAP -baseline O2 2-3L * Influenza A -tamiflu * Secondary bacterial PNA with severe sepsis - MSSA + blood cultures -IV ancef -repeat BC pending to assess clearance of bacteremia * COPD exacerbation -steroids, nebs * Obesity BMI 34 * DM II - very hyperglycemic on IV steroids - improved on PO prednisone -home glipizide -HgA1c 12.2 - poor baseline control * Possible LA thrombus -RODRIGUEZ tomorrow -d/w Dr. Castro - suspicion not high enough to warrant empiric anti-coagulation prior to RODRIGUEZ * Metabolic encephalopathy - improving * Dysphagia - passed swallow - nectar thick -advance diet * CKD - suspect baseline * Hypernatremia - resolved Subjective: Doing well. Still very fatigued Objective: Vital Signs Temp Pulse Resp BP Pulse Ox 36.9 C 101 H 24 H 158/91 H 92 11/15/16 16:00 11/15/16 16:00 11/15/16 16:00 11/15/16 16:00 11/15/16 16:00 Laboratory Results 11/15/16 04:52 11/15/16 12:06 11/14/16 11/15/16 11/16/16 05:59 05:59 05:59 Intake Total 2091 348 1727 Output Total 1175 Balance 783 673 3584 - Physical Exam Constitutional: no apparent distress, appears nourished, not in pain Cardiovascular: regular rate and rhythym, no murmur, rub, or gallop Respiratory: no respiratory distress, expiratory wheeze, inspiratory crackles, rhonchi Gastrointestinal: normoactive bowel sounds, soft, non-tender abdomen, no palpable masses Skin: no rashes or abrasions, no fluctuance, no induration Psychiatric: interacting appropriately, thought process linear, flat affect, poor judgement ICD10 Worksheet Patient Problems: Problems Problem Status Onset CHF (congestive heart failure) Acute Elevated troponin Acute Influenza A Acute Pneumonia Acute Sepsis Acute Diarrhea Acute
[2016-11-15 18:49] LABS: POTASSIUM 3.9 mEq/L (3.5-5.2)
[2016-11-15] MEDS: hydrOXYzine HCL 10 MG TAB PO SCH (19:46)
[2016-11-15] MEDS: LATANOPROST 0.005% 2.5 ML OPHT DROPS EACHEYE SCH (19:50)
[2016-11-15] MEDS: ARIPiprazole 2 MG TAB PO SCH (21:25)
[2016-11-15] MEDS: INSULIN REGULAR HUMAN 100 UNIT/ML SC SCH (21:31)
[2016-11-15 22:16] LABS: GLUCOSE 465 mg/dL (70-100)
[2016-11-16] MEDS: ALTEPLASE 2 MG VIAL IVP PRN ×2 (00:18→01:19)
[2016-11-16] MEDS: IPRATROPIUM/ALBUTEROL 3 ML DEYVIAL IH SCH ×4 (04:02→22:40)
[2016-11-16 04:54] LABS: ABSOLUTE NRBC COUNT 0.08 10^3/uL (0-0.01); ADD DIFF? YES; ADD MORPH? NO; ATYPICAL LYMPHOCYTE FLAG 10 (0-99); FRAGMENT RBC FLAG 20 (0-99); HEMOGLOBIN 8.8 g/dL (12.6-16.3); LIPEMIA HEMOLYSIS FLAG 80 (0-99); MEAN CELL HEMOGLOBIN 27.6 pg (27.9-34.1); MEAN CELL HEMOGLOBIN CONCENTR. 31.4 g/dL (32.4-36.7); MEAN CELL VOLUME 87.8 fL (81.5-99.8); MEAN PLATELET VOLUME 12.3 fL (8.7-11.7); NRBC-AUTO% 0.5 % (0.0-0.2); PLATELET CLUMPS FLAG 0 (0-99); PLATELET COUNT 138 10^3/uL (150-400); RED BLOOD CELL COUNT 3.19 10^6/uL (4.18-5.33); RED CELL DISTRIBUTION WIDTH 15.7 % (11.5-15.2)
[2016-11-16 04:59] LABS: ADD SCAN? NO; LEFT SHIFT FLG 120 (0-99)
[2016-11-16 05:10] LABS: ANION GAP 9 mEq/L (8-16); CALCIUM 8.3 mg/dL (8.5-10.4); CARBON DIOXIDE 20 mEq/l (22-31); CHLORIDE 114 mEq/L (97-110); CREATININE 1.1 mg/dL (0.6-1.0); GLOMERULAR FILTRATION RATE 47; GLUCOSE 254 mg/dL (70-100); MAGNESIUM 1.6 mg/dL (1.6-2.3); POTASSIUM 3.7 mEq/L (3.5-5.2); SODIUM 143 mEq/L (134-144)
[2016-11-16] MEDS: ceFAZolin 2 GM in D5W 100 ML IV SCH ×3 (05:32→22:55)
[2016-11-16 05:44] LABS: LARGE PLATELETS PRESENT; MACROCYTES 1+; PLATELET ESTIMATE DECREASED (ADEQ)
[2016-11-16] MEDS ORDERED: NS 1,000 ML IV SCH (06:00)
[2016-11-16] MEDS: OSELTAMIVIR 6 MG/ML UDSYR PO SCH (08:14)
[2016-11-16] MEDS: INSULIN REGULAR HUMAN 100 UNIT/ML SC SCH ×4 (08:39→21:19)
[2016-11-16] MEDS: BRIMONIDINE 0.2% 5 ML OPHT.BTL EACHEYE SCH ×2 (08:41→20:03)
[2016-11-16] MEDS: BUDESONIDE 0.5 MG/2 ML AMPUL.NEB IH SCH ×2 (10:28→22:40)
[2016-11-16] MEDS ORDERED: POTASSIUM Cl (KCl) 50 ML IV ONE (11:13)
[2016-11-16] MEDS: FAMOTIDINE 20 MG TAB PO SCH (11:42)
[2016-11-16] MEDS: ACETYLCYSTEINE 10% 30 ML VIAL IH SCH ×3 (11:51→22:43)
[2016-11-16] MEDS: HYDROCODONE/APAP 5/325 TAB PO SCH ×3 (12:05→20:02)
[2016-11-16] MEDS: glipiZIDE 5 MG TAB PO SCH ×2 (12:05→20:01)
[2016-11-16] MEDS: MEMANTINE HCL 5 MG TAB PO SCH ×2 (12:05→20:02)
[2016-11-16] MEDS: ENOXAPARIN 40 MG/0.4 ML SYR SC SCH (12:06)
[2016-11-16] MEDS: predniSONE 20 MG TAB PO SCH (12:09)
--- NOTE | 2016-11-16 16:35 | HOSPPROG ---
Hospitalist Progress Note Assessment/Plan: Assessment/Plan: 86 yo F p/w severe sepsis in setting of MSSA pneumonia and bacteremia c/b acute encephalopathy and acute on chronic hypoxic respiratory failure # Acute on chronic hypoxic respiratory failure. Evidenced by SpO2 85% on room air, objective tachypnea (RR 24) w/ symptomatic shortness of breath, 2/2 pneumonia - required BiPAP - currently requiring 9L NC (baseline 2-3L) # Severe sepsis. Evidenced by sepsis-2 criteria, fever (39C) + tachypnea + tachycardia + leukocytosis (WBC 23,100) + clear source (bacteremia/pneumonia) + end-organ failure (resp failure, acute encephalopathy), resulting in autonomic dysregulation in setting of infxn - cont monitor CBC - monitor fever curve # MSSA bacteremia. 11/11 BCx positive, 11/13 pending - will require 14 days from neg cx date - likely 2/2 PNA - cont ancef - appreciate ID consult # Suspected MSSA pneumonia. Potential bacterial superinfxn in setting of flu - cont ancef # Influenza A. Cont tamiflu 2xd # Acute COPD exacerbation. Evidenced by wheezes, resp failure - cont prednisone and nebs # Obesity. BMI 34 # Chronic DM2. C/b hyperglycemia, A1c 12.2% - cont on glipizide - cont on ISS # Possible LA thrombus. Discussed in depth w/ family - given risks of worsening encephalopathy w/ sedation, hold on procedure at this time - cont to monitor tele for Afib - hold on empiric anticoagulation # Acute encephalopathy. Evidenced by global brain dysfunction characterized as disorientation + somnolence, all of which are an acute change from baseline, 2/ 2 toxic effects of infxn - at risk of worsening deconditioning - will require SNF at discharge - family to express care concerns to APS # Dysphagia. Cont [employer] evals - get VFSS # CKD Stage III. Suspect at baseline # Hypernatremia. Acute, 2/2 poor free water intake, cont to monitor Diet. Thickened PPx. High risk, hep SC Code. DNR Dispo. ADD uncertain, remains clinically unresolved Subjective: Patient remains somnolent, family very concerned about her living situation Objective: Vital Signs Temp Pulse Resp BP Pulse Ox 36.8 C 77 20 163/85 H 92 11/16/16 15:48 11/16/16 15:48 11/16/16 15:48 11/16/16 15:48 11/16/16 15:48 Laboratory Results 11/16/16 04:42 11/16/16 04:42 11/15/16 11/16/16 11/17/16 05:59 05:59 05:59 Intake Total 348 1727 120 Output Total 2 Balance 348 1725 120 - Time Spent With Patient Time Spent with Patient: greater than 35 minutes Time Spent with Patient: Greater than 35 minutes spent on this patients care, greater than 50% of time spent counseling, educating, and coordinating care regarding the above mentioned plan. - Physical Exam Constitutional: chronically ill appearing, obese, uncomfortable Cardiovascular: systolic murmur (2/6 sternum), No irregularly irregular, No tachycardia, No edema Respiratory: expiratory wheeze (Bilateral), No reduced air movement, No inspiratory crackles, No bronchial breath sounds Gastrointestinal: normoactive bowel sounds, soft, non-tender abdomen, no palpable masses Neurologic: other (Alert awake oriented x2 to person and place not to time), No weakness, No facial droop Psychiatric: not anxious, encephalopathic, poor insight, poor judgement, poor memory, other (Concentration is 0/7), No agitated ICD10 Worksheet Patient Problems: Problems Problem Status Onset Diarrhea Acute Influenza A Acute CHF (congestive heart failure) Acute Elevated troponin Acute Sepsis Acute Pneumonia Acute
--- NOTE | 2016-11-16 18:05 | PCMIDPN ---
Assessment/Plan: Assessment: Influenza and secondary bacterial pneumonia with MSSA bacteremia. Repeat blood cultures from 11/13 in 11/14 are no growth to date. Clinically the patient looks like she is making slow improvement. Plan to continue the cefazolin. Tamiflu concludes today. Patient will need 4 weeks of cefazolin from cleared blood cultures. Plan: 1. Continue cefazolin at current dosing. 2. Follow clinical improvement. 3. Start making plans for long-term IV antibiotic use. Subjective: Patient is resting in her hospital bed. [id number] who is present in the room with her. According the family the patient is steadily improving. No new fevers. No new events. Objective: Cefazolin # 5 Tamiflu # 5 Vital Signs Temp Pulse Resp BP Pulse Ox 36.8 C 82 18 163/85 H 91 L 11/16/16 15:48 11/16/16 16:42 11/16/16 16:42 11/16/16 15:48 11/16/16 16:42 Laboratory Results 11/16/16 04:42 11/16/16 04:42 11/15/16 11/16/16 11/17/16 05:59 05:59 05:59 Intake Total 348 1727 980 Output Total 2 Balance 348 1725 980 - Physical Exam General Appearance: WD/WN, alert, no apparent distress, non-toxic Respiratory: lungs clear, normal breath sounds, No respiratory distress Cardiac/Chest: regular rate, rhythm, No tachycardia Skin: normal color, warm/dry, No rash Neuro/Psych: alert ICD10 Worksheet Patient Problems: Problems Problem Status Onset CHF (congestive heart failure) Acute Elevated troponin Acute Influenza A Acute Pneumonia Acute Sepsis Acute Diarrhea Acute
[2016-11-16] MEDS: MELATONIN 3 MG TAB PO SCH (20:01)
[2016-11-16] MEDS: LATANOPROST 0.005% 2.5 ML OPHT DROPS EACHEYE SCH (20:03)
[2016-11-17] MEDS: ACETYLCYSTEINE 10% 30 ML VIAL IH SCH ×4 (05:22→22:56)
[2016-11-17] MEDS: IPRATROPIUM/ALBUTEROL 3 ML DEYVIAL IH SCH ×4 (05:22→22:56)
[2016-11-17] MEDS: ceFAZolin 2 GM in D5W 100 ML IV SCH ×3 (05:43→23:10)
[2016-11-17 05:49] LABS: ABSOLUTE NRBC COUNT 0.13 10^3/uL (0-0.01); ADD DIFF? YES; ADD MORPH? NO; ATYPICAL LYMPHOCYTE FLAG 10 (0-99); FRAGMENT RBC FLAG 20 (0-99); HEMATOCRIT 28.6 % (38.0-47.0); HEMOGLOBIN 9.5 g/dL (12.6-16.3); LIPEMIA HEMOLYSIS FLAG 80 (0-99); MEAN CELL HEMOGLOBIN 27.5 pg (27.9-34.1); MEAN CELL HEMOGLOBIN CONCENTR. 33.2 g/dL (32.4-36.7); MEAN CELL VOLUME 82.9 fL (81.5-99.8); MEAN PLATELET VOLUME 11.9 fL (8.7-11.7); NRBC-AUTO% 0.7 % (0.0-0.2); PLATELET CLUMPS FLAG 0 (0-99); PLATELET COUNT 164 10^3/uL (150-400); RED BLOOD CELL COUNT 3.45 10^6/uL (4.18-5.33); RED CELL DISTRIBUTION WIDTH 15.6 % (11.5-15.2)
[2016-11-17 06:07] LABS: LEFT SHIFT FLG 120 (0-99)
[2016-11-17 06:08] LABS: ADD SCAN? NO
[2016-11-17 06:20] LABS: ANION GAP 8 mEq/L (8-16); CALCIUM 8.5 mg/dL (8.5-10.4); CARBON DIOXIDE 21 mEq/l (22-31); CHLORIDE 113 mEq/L (97-110); GLOMERULAR FILTRATION RATE 52; GLUCOSE 80 mg/dL (70-100); MAGNESIUM 1.4 mg/dL (1.6-2.3); SODIUM 142 mEq/L (134-144)
[2016-11-17 06:51] LABS: PLATELET ESTIMATE ADEQUATE (ADEQ)
[2016-11-17 06:52] LABS: LARGE PLATELETS PRESENT; POLYCHROMASIA 1+
[2016-11-17] MEDS: INSULIN REGULAR HUMAN 100 UNIT/ML SC SCH ×4 (08:09→23:59)
[2016-11-17] MEDS ORDERED: POTASSIUM CL 20 MEQ TAB PO ONE (08:42)
[2016-11-17] MEDS ORDERED: MAGNESIUM SULF 2 GM/WATER 50 ML IV ONE (08:42)
[2016-11-17] MEDS: BUDESONIDE 0.5 MG/2 ML AMPUL.NEB IH SCH ×2 (09:31→22:56)
[2016-11-17] MEDS: ONDANSETRON 4 MG/2 ML VIAL IVP PRN (09:34)
[2016-11-17] MEDS: BRIMONIDINE 0.2% 5 ML OPHT.BTL EACHEYE SCH ×2 (09:46→23:09)
[2016-11-17] MEDS: FAMOTIDINE 20 MG TAB PO SCH (10:34)
[2016-11-17] MEDS: HYDROCODONE/APAP 5/325 TAB PO SCH (10:34)
[2016-11-17] MEDS: predniSONE 20 MG TAB PO SCH (10:34)
[2016-11-17] MEDS: MEMANTINE HCL 5 MG TAB PO SCH ×2 (10:35→23:27)
[2016-11-17] MEDS: glipiZIDE 5 MG TAB PO SCH ×2 (10:35→23:09)
[2016-11-17] MEDS: ENOXAPARIN 40 MG/0.4 ML SYR SC SCH (10:37)
[2016-11-17] MEDS: POTASSIUM Cl (KCl) 100 ML IV SCH ×4 (11:33→15:54)
--- NOTE | 2016-11-17 14:47 | PCMIDPN ---
Assessment/Plan: Assessment/Plan: * MSSA bacteremia/PNA: Somnolent this pm. Agree with plans for MRI to assess for stroke with possible left atrial thrombus present. Repeat blood cultures show clearing of bacteremia. Continue cefazolin. * Influenza: Completed 5 days of Tamiflu. Continue droplet precautions in hospital as may still have viral shedding. * Leukocytosis: Likely multifactorial including infection and demargination associated with steroid use. Findings and plan discussed with Dr. Rahman and patient's daughter. 11/17/16 14:42 Subjective: Patient somnolent this pm. Objective: Vital Signs Temp Pulse Resp BP Pulse Ox 36.7 C 75 22 H 153/90 H 99 11/17/16 08:00 11/17/16 11:47 11/17/16 11:47 11/17/16 08:00 11/17/16 11:47 Laboratory Results 11/17/16 05:30 11/17/16 05:30 11/16/16 11/17/16 11/18/16 05:59 05:59 05:59 Intake Total 1727 980 Output Total 2 Balance 1725 980 Cefazolin #6 Blood cultures 11/13 and 11/14 no growth - Physical Exam General Appearance: other (somnolent but arousable) EENT: No conjunctival petechiae Respiratory: coarse breath sounds Neck: supple Cardiac/Chest: regular rate, rhythm Extremities: No inflammation Abdomen: non-tender, No distended Skin: No embolic lesions Neuro/Psych: other (able to follow simple commands) ICD10 Worksheet Patient Problems: Problems Problem Status Onset CHF (congestive heart failure) Acute Elevated troponin Acute Influenza A Acute Pneumonia Acute Sepsis Acute Diarrhea Acute
[2016-11-17 15:39] LABS: ANION GAP 8 mEq/L (8-16); CALCIUM 8.1 mg/dL (8.5-10.4); CARBON DIOXIDE 20 mEq/l (22-31); CHLORIDE 108 mEq/L (97-110); GLOMERULAR FILTRATION RATE 52; GLUCOSE 262 mg/dL (70-100); MAGNESIUM 2.1 mg/dL (1.6-2.3); SODIUM 136 mEq/L (134-144)
--- NOTE | 2016-11-17 17:53 | HOSPPROG ---
Hospitalist Progress Note Assessment/Plan: Assessment/Plan: 86 yo F p/w severe sepsis in setting of MSSA pneumonia and bacteremia c/b acute encephalopathy and acute on chronic hypoxic respiratory failure # Acute on chronic hypoxic respiratory failure. Evidenced by SpO2 85% on room air, objective tachypnea (RR 24) w/ symptomatic shortness of breath, 2/2 pneumonia - required BiPAP - currently requiring NC # Severe sepsis. Evidenced by sepsis-2 criteria, fever (39C) + tachypnea + tachycardia + leukocytosis (WBC 23,100) + clear source (bacteremia/pneumonia) + end-organ failure (resp failure, acute encephalopathy), resulting in autonomic dysregulation in setting of infxn - cont monitor CBC - monitor fever curve # MSSA bacteremia. 11/11 BCx positive, 11/13 NGTD - will require 14 days from neg cx date - likely 2/2 PNA - cont ancef - appreciate ID consult # Suspected MSSA pneumonia. Potential bacterial superinfxn in setting of flu - cont ancef # Influenza A. S/p 5 days tamiflu # Acute COPD exacerbation. Evidenced by wheezes, resp failure - cont prednisone and nebs # Obesity. BMI 34 # Chronic DM2. C/b hyperglycemia, A1c 12.2% - cont on glipizide - cont on ISS # Possible LA thrombus. Discussed in depth w/ family - given risks of worsening encephalopathy w/ sedation, hold on procedure at this time - cont to monitor tele for Afib - hold on empiric anticoagulation # Acute encephalopathy. Evidenced by global brain dysfunction characterized as disorientation + somnolence, all of which are an acute change from baseline, 2/ 2 toxic effects of infxn - acutely worsening today - counseled daughter that condition may be worsening and that non-invasive w/u w / MRI to eval for CVA would be reasonable, but will hold on CT scans of chest/ abd at this time given that any abscess formation would not be surgically drained given limited goals of care - will discuss findings w/ family in AM - get ABG to r/o hypercapnea - place on supportive IVF w/ K # Dysphagia. 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 Suspect at baseline # Hypernatremia. Acute, 2/2 poor free water intake, cont to monitor Diet. Thickened PPx. High risk, hep SC Code. DNR Dispo. ADD uncertain, remains clinically unresolved Subjective: Patient is less responsive today, only opening eyes to voice and physical stimulation, immediately falling back asleep Objective: Vital Signs Temp Pulse Resp BP Pulse Ox 36.7 C 82 20 146/71 H 94 11/17/16 16:00 11/17/16 17:16 11/17/16 17:16 11/17/16 16:00 11/17/16 17:16 Laboratory Results 11/17/16 05:30 11/17/16 15:00 11/16/16 11/17/16 11/18/16 05:59 05:59 05:59 Intake Total 1727 980 120 Output Total 2 Balance 1725 980 120 - Time Spent With Patient Time Spent with Patient: greater than 35 minutes Time Spent with Patient: Greater than 35 minutes spent on this patients care, greater than 50% of time spent counseling, educating, and coordinating care regarding the above mentioned plan. - Physical Exam Constitutional: not in pain, chronically ill appearing, obese, No uncomfortable Cardiovascular: regular rate and rhythym, no murmur, rub, or gallop, No edema Respiratory: No expiratory wheeze, No inspiratory crackles, No bronchial breath sounds Gastrointestinal: normoactive bowel sounds, soft, non-tender abdomen, no palpable masses Neurologic: other (Alert awake oriented times 0) Psychiatric: encephalopathic, other (Minimally follows commands, flat affect) ICD10 Worksheet Patient Problems: Problems Problem Status Onset Diarrhea Acute Influenza A Acute CHF (congestive heart failure) Acute Elevated troponin Acute Sepsis Acute Pneumonia Acute
[2016-11-17] MEDS ORDERED: POTASSIUM Cl (KCl) 40 MEQ in NS 1,000 ML IV SCH (18:00)
[2016-11-17] MEDS: NS W/ 20 KCl/L 1,000 ML IV SCH (18:06)
[2016-11-17] MEDS: LATANOPROST 0.005% 2.5 ML OPHT DROPS EACHEYE SCH (23:07)
[2016-11-17] MEDS: MELATONIN 3 MG TAB PO SCH (23:09)
[2016-11-17] MEDS: ARIPiprazole 2 MG TAB PO SCH (23:26)
[2016-11-18 04:54] LABS: ABSOLUTE NRBC COUNT 0.02 10^3/uL (0-0.01); ADD DIFF? YES; ADD MORPH? NO; ADD SCAN? NO; ATYPICAL LYMPHOCYTE FLAG 0 (0-99); FRAGMENT RBC FLAG 20 (0-99); HEMATOCRIT 24.5 % (38.0-47.0); HEMOGLOBIN 7.9 g/dL (12.6-16.3); LEFT SHIFT FLG 90 (0-99); LIPEMIA HEMOLYSIS FLAG 80 (0-99); MEAN CELL HEMOGLOBIN 27.6 pg (27.9-34.1); MEAN CELL HEMOGLOBIN CONCENTR. 32.2 g/dL (32.4-36.7); MEAN CELL VOLUME 85.7 fL (81.5-99.8); NRBC-AUTO% 0.1 % (0.0-0.2); PLATELET CLUMPS FLAG 0 (0-99); PLATELET COUNT 146 10^3/uL (150-400); RED BLOOD CELL COUNT 2.86 10^6/uL (4.18-5.33); RED CELL DISTRIBUTION WIDTH 15.8 % (11.5-15.2)
[2016-11-18] MEDS: ceFAZolin 2 GM in D5W 100 ML IV SCH ×3 (04:59→21:44)
[2016-11-18 05:09] LABS: ANION GAP 4 mEq/L (8-16); CALCIUM 7.9 mg/dL (8.5-10.4); CARBON DIOXIDE 21 mEq/l (22-31); CHLORIDE 111 mEq/L (97-110); GLOMERULAR FILTRATION RATE 52; GLUCOSE 282 mg/dL (70-100); POTASSIUM 4.3 mEq/L (3.5-5.2); SODIUM 136 mEq/L (134-144)
[2016-11-18] MEDS: ACETYLCYSTEINE 10% 30 ML VIAL IH SCH ×4 (05:38→21:04)
[2016-11-18] MEDS: IPRATROPIUM/ALBUTEROL 3 ML DEYVIAL IH SCH ×4 (05:38→21:04)
[2016-11-18 06:02] LABS: PLATELET ESTIMATE ADEQUATE (ADEQ)
[2016-11-18 06:03] LABS: LARGE PLATELETS PRESENT; POLYCHROMASIA 1+
[2016-11-18] MEDS: MEMANTINE HCL 5 MG TAB PO SCH ×2 (08:41→21:33)
[2016-11-18] MEDS: FAMOTIDINE 20 MG TAB PO SCH (08:41)
[2016-11-18] MEDS: predniSONE 20 MG TAB PO SCH (08:41)
[2016-11-18] MEDS: NS W/ 20 KCl/L 1,000 ML IV SCH (08:41)
[2016-11-18] MEDS: INSULIN REGULAR HUMAN 100 UNIT/ML SC SCH ×4 (08:42→21:38)
[2016-11-18] MEDS: ENOXAPARIN 40 MG/0.4 ML SYR SC SCH (08:42)
[2016-11-18] MEDS: BRIMONIDINE 0.2% 5 ML OPHT.BTL EACHEYE SCH ×2 (08:43→21:32)
[2016-11-18] MEDS: glipiZIDE 5 MG TAB PO SCH ×2 (08:43→21:33)
[2016-11-18] MEDS: BUDESONIDE 0.5 MG/2 ML AMPUL.NEB IH SCH ×2 (10:02→21:04)
--- NOTE | 2016-11-18 12:49 | HOSPPROG ---
Hospitalist Progress Note Assessment/Plan: Assessment/Plan: 86 yo F p/w severe sepsis in setting of MSSA pneumonia and bacteremia c/b acute encephalopathy and acute on chronic hypoxic respiratory failure # Acute on chronic hypoxic respiratory failure. Evidenced by SpO2 85% on room air, objective tachypnea (RR 24) w/ symptomatic shortness of breath, 2/2 pneumonia - required BiPAP - currently requiring NC # Severe sepsis. Evidenced by sepsis-2 criteria, fever (39C) + tachypnea + tachycardia + leukocytosis (WBC 23,100) + clear source (bacteremia/pneumonia) + end-organ failure (resp failure, acute encephalopathy), resulting in autonomic dysregulation in setting of infxn - cont monitor CBC - monitor fever curve # MSSA bacteremia. 11/11 BCx positive, 11/13 NGTD - will require 14 days from neg cx date (11/13) - likely 2/2 PNA - cont ancef - appreciate ID consult, will need outpt f/u # Suspected MSSA pneumonia. Potential bacterial superinfxn in setting of flu - cont ancef # Influenza A. S/p 5 days tamiflu # Acute COPD exacerbation. Evidenced by wheezes, resp failure - cont prednisone and nebs # Obesity. BMI 34 # Chronic DM2. C/b hyperglycemia, A1c 12.2% - cont on glipizide - cont on ISS # Possible LA thrombus. Discussed in depth w/ family - given risks of worsening encephalopathy w/ sedation, hold on procedure at this time - cont to monitor tele for Afib - hold on empiric anticoagulation - MRI w/o CVAs # Acute encephalopathy. Evidenced by global brain dysfunction characterized as disorientation + somnolence, all of which are an acute change from baseline, 2/ 2 toxic effects of infxn - has begun to stabilize - improving sleep, reduce overnight interruptions, qHS melatonin - counseled daughters that recovery will likely be protracted - reduce rate of supportive IVF w/ K # Dysphagia. 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 Suspect at baseline # Hypernatremia. Acute, 2/2 poor free water intake, cont to monitor Diet. Thickened PPx. High risk, hep SC Code. DNR Dispo. ADD uncertain, remains clinically unresolved Subjective: Patient's level of attention is improving today Objective: Vital Signs Temp Pulse Resp BP Pulse Ox 37.2 C 74 18 174/79 H 92 11/18/16 08:00 11/18/16 08:00 11/18/16 08:00 11/18/16 08:00 11/18/16 08:00 Laboratory Results 11/18/16 04:10 11/18/16 04:10 11/17/16 11/18/16 11/19/16 05:59 05:59 05:59 Intake Total 980 670 Balance 980 670 - Time Spent With Patient Time Spent with Patient: greater than 35 minutes Time Spent with Patient: Greater than 35 minutes spent on this patients care, greater than 50% of time spent counseling, educating, and coordinating care regarding the above mentioned plan. - Physical Exam Constitutional: no apparent distress, not in pain, chronically ill appearing, obese, No uncomfortable Cardiovascular: regular rate and rhythym, no murmur, rub, or gallop Respiratory: no respiratory distress, no rales or rhonchi, clear to auscultation Gastrointestinal: normoactive bowel sounds, soft, non-tender abdomen, no palpable masses Neurologic: AAOx3, weakness (Motor strength 4/5 bilateral lower extremity) Psychiatric: other (Concentration is 7/7, reduced level of attentiveness, somnolent but arousable, follows commands) ICD10 Worksheet Patient Problems: Problems Problem Status Onset Diarrhea Acute Influenza A Acute CHF (congestive heart failure) Acute Elevated troponin Acute Sepsis Acute Pneumonia Acute
[2016-11-18] MEDS ORDERED: NS W/ 20 KCl/L 1,000 ML IV SCH (13:00)
--- NOTE | 2016-11-18 17:47 | PCMIDPN ---
Assessment/Plan: Assessment/Plan: * MSSA bacteremia/PNA: Clinically improved today with increased inter activity and alertness. Continue cefazolin. Plan to change PICC line in coming weeks given placed during active bacteremia. * Influenza: Completed 5 days of Tamiflu. Continue droplet precautions in hospital as may still have viral shedding. * Leukocytosis: Likely multifactorial including infection and demargination associated with steroid use; slight decrease on assessment today. Findings and plan discussed with patient's daughter. 11/18/16 17:45 Subjective: More alert today without specific complaints. Daughter notes more interactive. Objective: Vital Signs Temp Pulse Resp BP Pulse Ox 36.5 C 72 20 142/70 H 92 11/18/16 16:00 11/18/16 17:05 11/18/16 17:05 11/18/16 16:00 11/18/16 17:05 Microbiology 11/13/16 14:30 Blood Culture - Final Blood Laboratory Results 11/18/16 04:10 11/18/16 04:10 11/17/16 11/18/16 11/19/16 05:59 05:59 05:59 Intake Total 792 590 8189 Balance 668 341 1871 - Physical Exam General Appearance: alert, no apparent distress EENT: No thrush, No conjunctival petechiae Respiratory: lungs clear (Anterolaterally) Cardiac/Chest: regular rate, rhythm, No systolic murmur Abdomen: non-tender, No distended Skin: No embolic lesions ICD10 Worksheet Patient Problems: Problems Problem Status Onset CHF (congestive heart failure) Acute Elevated troponin Acute Influenza A Acute Pneumonia Acute Sepsis Acute Diarrhea Acute
[2016-11-18] MEDS: MELATONIN 3 MG TAB PO SCH (21:33)
[2016-11-18] MEDS: LATANOPROST 0.005% 2.5 ML OPHT DROPS EACHEYE SCH (21:44)
[2016-11-19 04:42] LABS: ADD DIFF? YES; ADD MORPH? NO; ADD SCAN? NO; ATYPICAL LYMPHOCYTE FLAG 0 (0-99); FRAGMENT RBC FLAG 20 (0-99); LEFT SHIFT FLG 60 (0-99); LIPEMIA HEMOLYSIS FLAG 80 (0-99); MEAN CELL HEMOGLOBIN 27.9 pg (27.9-34.1); MEAN CELL VOLUME 87.1 fL (81.5-99.8); MEAN PLATELET VOLUME 11.9 fL (8.7-11.7); PLATELET CLUMPS FLAG 10 (0-99); PLATELET COUNT 177 10^3/uL (150-400); RED BLOOD CELL COUNT 2.87 10^6/uL (4.18-5.33)
[2016-11-19] MEDS: IPRATROPIUM/ALBUTEROL 3 ML DEYVIAL IH SCH ×4 (05:11→20:23)
[2016-11-19] MEDS: ACETYLCYSTEINE 10% 30 ML VIAL IH SCH ×3 (05:11→17:22)
[2016-11-19 05:14] LABS: ANION GAP 6 mEq/L (8-16); CALCIUM 8.2 mg/dL (8.5-10.4); CARBON DIOXIDE 22 mEq/l (22-31); CHLORIDE 110 mEq/L (97-110); CREATININE 1.1 mg/dL (0.6-1.0); GLOMERULAR FILTRATION RATE 47; GLUCOSE 272 mg/dL (70-100); MAGNESIUM 1.9 mg/dL (1.6-2.3); POTASSIUM 4.5 mEq/L (3.5-5.2); SODIUM 138 mEq/L (134-144)
[2016-11-19 05:27] LABS: GIANT PLATELETS PRESENT; LARGE PLATELETS PRESENT; PLATELET ESTIMATE ADEQUATE (ADEQ); TOXIC VACUOLIZATION PRESENT
[2016-11-19] MEDS: ceFAZolin 2 GM in D5W 100 ML IV SCH ×3 (05:56→21:02)
[2016-11-19] MEDS: INSULIN REGULAR HUMAN 100 UNIT/ML SC SCH ×4 (08:22→21:19)
[2016-11-19] MEDS: ENOXAPARIN 40 MG/0.4 ML SYR SC SCH (08:24)
[2016-11-19] MEDS: glipiZIDE 5 MG TAB PO SCH ×2 (08:25→20:57)
[2016-11-19] MEDS: FAMOTIDINE 20 MG TAB PO SCH (08:25)
[2016-11-19] MEDS: MEMANTINE HCL 5 MG TAB PO SCH ×2 (08:25→21:46)
[2016-11-19] MEDS: predniSONE 20 MG TAB PO SCH (08:26)
[2016-11-19] MEDS: BRIMONIDINE 0.2% 5 ML OPHT.BTL EACHEYE SCH ×2 (08:27→21:24)
[2016-11-19] MEDS: ONDANSETRON 4 MG/2 ML VIAL IVP PRN (08:58)
[2016-11-19] MEDS: D5W 1/2 NS 1,000 ML IV SCH (09:00)
[2016-11-19] MEDS: BUDESONIDE 0.5 MG/2 ML AMPUL.NEB IH SCH ×2 (10:18→20:20)
[2016-11-19] MEDS ORDERED: BISACODYL 5 MG EC TAB PO PRN (12:29)
[2016-11-19] MEDS ORDERED: BISACODYL 10 MG SUPP PR PRN (12:29)
[2016-11-19] MEDS ORDERED: LACTULOSE 20 GM/30 ML UDCUP PO PRN (12:30)
--- NOTE | 2016-11-19 12:35 | HOSPPROG ---
Hospitalist Progress Note Assessment/Plan: Assessment/Plan: 86 yo F p/w severe sepsis in setting of MSSA pneumonia and bacteremia c/b acute encephalopathy and acute on chronic hypoxic respiratory failure # Acute on chronic hypoxic respiratory failure. Evidenced by SpO2 85% on room air, objective tachypnea (RR 24) w/ symptomatic shortness of breath, 2/2 pneumonia - required BiPAP - currently requiring NC # Severe sepsis. Evidenced by sepsis-2 criteria, fever (39C) + tachypnea + tachycardia + leukocytosis (WBC 23,100) + clear source (bacteremia/pneumonia) + end-organ failure (resp failure, acute encephalopathy), resulting in autonomic dysregulation in setting of infxn - cont monitor CBC - monitor fever curve # MSSA bacteremia. 11/11 BCx positive, 11/13 NGTD - will require 14 days from neg cx date (11/13) - likely 2/2 PNA - cont ancef - d/w Dr. Porter, will get PICC change given that present one placed while patient was bacteremic # Suspected MSSA pneumonia. Potential bacterial superinfxn in setting of flu - cont ancef # Influenza A. S/p 5 days tamiflu # Acute COPD exacerbation. Evidenced by wheezes, resp failure - cont prednisone and nebs - taniya breathing tx - start IS # Obesity. BMI 34 # Chronic DM2. C/b hyperglycemia, A1c 12.2% - cont on glipizide - cont on ISS # Possible LA thrombus. Discussed in depth w/ family - given risks of worsening encephalopathy w/ sedation, hold on procedure at this time - cont to monitor tele for Afib - hold on empiric anticoagulation - MRI w/o CVAs # Acute encephalopathy. Evidenced by global brain dysfunction characterized as disorientation + somnolence, all of which are an acute change from baseline, 2/ 2 toxic effects of infxn - has begun to stabilize - improving sleep, reduce overnight interruptions, qHS melatonin - counseled daughter that recovery will likely be protracted - reduce rate of supportive IVF # Dysphagia. Cont TELEMETRY MONITOR evals # CKD Stage III. Suspect at baseline # Hypernatremia. Acute, 2/2 poor free water intake, cont to monitor Diet. Thickened PPx. High risk, hep SC Code. DNR Dispo. ADD uncertain, remains clinically unresolved Subjective: coughing episode this AM, no BMs Objective: Vital Signs Temp Pulse Resp BP Pulse Ox 37.1 C 80 21 H 173/80 H 93 11/19/16 08:00 11/19/16 08:00 11/19/16 08:00 11/19/16 08:00 11/19/16 08:00 Microbiology 11/13/16 14:30 Blood Culture - Final Blood Laboratory Results 11/19/16 04:15 11/19/16 04:15 11/18/16 11/19/16 11/20/16 05:59 05:59 05:59 Intake Total 670 178 Balance 670 1787 - Time Spent With Patient Time Spent with Patient: greater than 35 minutes Time Spent with Patient: Greater than 35 minutes spent on this patients care, greater than 50% of time spent counseling, educating, and coordinating care regarding the above mentioned plan. - Physical Exam Constitutional: not in pain, chronically ill appearing, obese, No uncomfortable Cardiovascular: regular rate and rhythym, no murmur, rub, or gallop Respiratory: reduced air movement (bilat bases), expiratory wheeze, rhonchi (on insp bilat) Gastrointestinal: normoactive bowel sounds, soft, non-tender abdomen, no palpable masses, distension (moderately) Neurologic: other (AAOx2 (person and place)) Psychiatric: other (somnolent but arousable to voice, follows commands) ICD10 Worksheet Patient Problems: Problems Problem Status Onset Diarrhea Acute Influenza A Acute CHF (congestive heart failure) Acute Elevated troponin Acute Sepsis Acute Pneumonia Acute
[2016-11-19] MEDS ORDERED: ALTEPLASE 2 MG VIAL IVP PRN (13:02)
--- NOTE | 2016-11-19 13:06 | PCMIDPN ---
Assessment/Plan: Assessment/Plan: * MSSA bacteremia/PNA: Continued slow clinical improvement. Plan 4 weeks of cefazolin post clearing of blood cultures. Will have new PICC line placed tomorrow as initial PICC line placed during active MSSA bacteremia. * Influenza: Completed 5 days of Tamiflu. Continue droplet precautions in hospital as may still have viral shedding. * Leukocytosis: Stable. Suspect multifactorial related to infection and prednisone. 11/19/16 13:04 Subjective: Daughter notes that feels like her mother continues to improve and is more interactive. Objective: Vital Signs Temp Pulse Resp BP Pulse Ox 37.1 C 80 21 H 173/80 H 93 11/19/16 08:00 11/19/16 08:00 11/19/16 08:00 11/19/16 08:00 11/19/16 08:00 Microbiology 11/13/16 14:30 Blood Culture - Final Blood Laboratory Results 11/19/16 04:15 11/19/16 04:15 11/18/16 11/19/16 11/20/16 05:59 05:59 05:59 Intake Total 670 1784 Balance 670 1784 Cefazolin # 8 Blood cultures 11/13 and 11/14/2016 no growth - Physical Exam General Appearance: alert, no apparent distress EENT: pharynx normal, No thrush Respiratory: lungs clear (Anterolaterally), No respiratory distress Cardiac/Chest: regular rate, rhythm Abdomen: non-tender, No distended - Line/s RUE PICC Lines: No drainage, No erythema ICD10 Worksheet Patient Problems: Problems Problem Status Onset CHF (congestive heart failure) Acute Elevated troponin Acute Influenza A Acute Pneumonia Acute Sepsis Acute Diarrhea Acute
[2016-11-19] MEDS: MELATONIN 3 MG TAB PO SCH (20:57)
[2016-11-19] MEDS: LATANOPROST 0.005% 2.5 ML OPHT DROPS EACHEYE SCH (21:48)
[2016-11-20] MEDS: ACETYLCYSTEINE 10% 30 ML VIAL IH SCH ×4 (01:32→16:14)
[2016-11-20] MEDS: ceFAZolin 2 GM in D5W 100 ML IV SCH ×3 (05:11→21:35)
[2016-11-20] MEDS: D5W 1/2 NS 1,000 ML IV SCH (05:12)
[2016-11-20] MEDS: IPRATROPIUM/ALBUTEROL 3 ML DEYVIAL IH SCH ×4 (05:45→21:24)
[2016-11-20 06:09] LABS: ADD DIFF? YES; ADD MORPH? NO; ADD SCAN? NO; ATYPICAL LYMPHOCYTE FLAG 0 (0-99); FRAGMENT RBC FLAG 20 (0-99); HEMOGLOBIN 7.6 g/dL (12.6-16.3); LEFT SHIFT FLG 50 (0-99); LIPEMIA HEMOLYSIS FLAG 80 (0-99); MEAN CELL HEMOGLOBIN 28.1 pg (27.9-34.1); MEAN CELL HEMOGLOBIN CONCENTR. 31.7 g/dL (32.4-36.7); MEAN CELL VOLUME 88.9 fL (81.5-99.8); MEAN PLATELET VOLUME 11.7 fL (8.7-11.7); PLATELET CLUMPS FLAG 0 (0-99); PLATELET COUNT 175 10^3/uL (150-400); RED CELL DISTRIBUTION WIDTH 16.4 % (11.5-15.2)
[2016-11-20 06:45] LABS: ANION GAP 4 mEq/L (8-16); CALCIUM 8.2 mg/dL (8.5-10.4); CARBON DIOXIDE 22 mEq/l (22-31); CHLORIDE 107 mEq/L (97-110); CREATININE 1.1 mg/dL (0.6-1.0); GLOMERULAR FILTRATION RATE 47; GLUCOSE 294 mg/dL (70-100); MAGNESIUM 1.7 mg/dL (1.6-2.3); POTASSIUM 4.6 mEq/L (3.5-5.2); SODIUM 133 mEq/L (134-144)
[2016-11-20 07:33] LABS: PLATELET ESTIMATE ADEQUATE (ADEQ)
[2016-11-20 07:34] LABS: MACROCYTES 1+
[2016-11-20] MEDS: FAMOTIDINE 20 MG TAB PO SCH (09:27)
[2016-11-20] MEDS: predniSONE 20 MG TAB PO SCH (09:27)
[2016-11-20] MEDS: MEMANTINE HCL 5 MG TAB PO SCH ×2 (09:27→21:34)
[2016-11-20] MEDS: BRIMONIDINE 0.2% 5 ML OPHT.BTL EACHEYE SCH ×2 (09:28→21:33)
[2016-11-20] MEDS: ENOXAPARIN 40 MG/0.4 ML SYR SC SCH (09:28)
[2016-11-20] MEDS: glipiZIDE 5 MG TAB PO SCH ×2 (09:28→21:34)
[2016-11-20] MEDS: INSULIN REGULAR HUMAN 100 UNIT/ML SC SCH ×4 (09:38→21:44)
[2016-11-20] MEDS: BUDESONIDE 0.5 MG/2 ML AMPUL.NEB IH SCH ×2 (09:50→21:24)
--- NOTE | 2016-11-20 11:24 | HOSPPROG ---
Hospitalist Progress Note Assessment/Plan: Assessment/Plan: 86 yo F p/w severe sepsis in setting of MSSA pneumonia and bacteremia c/b acute encephalopathy and acute on chronic hypoxic respiratory failure # Acute on chronic hypoxic respiratory failure. Evidenced by SpO2 85% on room air, objective tachypnea (RR 24) w/ symptomatic shortness of breath, 2/2 pneumonia - required BiPAP - currently requiring NC # Severe sepsis. Evidenced by sepsis-2 criteria, fever (39C) + tachypnea + tachycardia + leukocytosis (WBC 23,100) + clear source (bacteremia/pneumonia) + end-organ failure (resp failure, acute encephalopathy), resulting in autonomic dysregulation in setting of infxn - cont monitor CBC - monitor fever curve # MSSA bacteremia. 11/11 BCx positive, 11/13 NGTD - will require 14 days from neg cx date (11/13), stop date 11/27 - likely 2/ PNA - cont ancef - d/w Dr. Porter, will get PICC change given that present one placed while patient was bacteremic # Suspected MSSA pneumonia. Potential bacterial superinfxn in setting of flu - cont ancef # Influenza A. S/p 5 days tamiflu # Acute COPD exacerbation. Evidenced by wheezes, resp failure - cont prednisone and nebs, will taper prednisone over 2 weeks given ongoing exp wheezing - taniya breathing tx - cont IS # Obesity. BMI 34 # Chronic DM2. C/b hyperglycemia, A1c 12.2% - cont on glipizide - cont on ISS # Possible LA thrombus. Discussed in depth w/ family - given risks of worsening encephalopathy w/ sedation, hold on procedure at this time - no e/o Afib on tele - hold on empiric anticoagulation - MRI w/o CVAs # Acute encephalopathy. Evidenced by global brain dysfunction characterized as disorientation + somnolence, all of which are an acute change from baseline, 2/ 2 toxic effects of infxn - has begun to stabilize - improving sleep, reduce overnight interruptions, qHS melatonin - reduce rate of supportive IVF # Dysphagia. Cont TURNER IN evals # CKD Stage III. Suspect at baseline # Hypernatremia. Acute, 2/2 poor free water intake, cont to monitor Diet. Thickened PPx. High risk, hep SC Code. DNR Dispo. ADD 11/21, remains clinically unresolved Subjective: Patient more alert today, participating in TURNER [place] eval, had bowel movement Objective: Vital Signs Temp Pulse Resp BP Pulse Ox 36.6 C 67 22 H 169/80 H 92 11/20/16 08:00 11/20/16 09:50 11/20/16 09:50 11/20/16 08:00 11/20/16 09:50 Microbiology 11/14/16 18:45 Blood Culture - Final Blood 11/14/16 17:56 Blood Culture - Final Blood Laboratory Results 11/20/16 06:00 11/20/16 06:00 11/19/16 11/20/16 11/21/16 05:59 05:59 05:59 Intake Total 1784 3078 Balance 1784 3078 - Physical Exam Constitutional: no apparent distress, not in pain, chronically ill appearing, obese, No uncomfortable Cardiovascular: regular rate and rhythym, no murmur, rub, or gallop, No irregularly irregular, No edema Respiratory: expiratory wheeze, bronchial breath sounds, No reduced air movement , No inspiratory crackles Gastrointestinal: normoactive bowel sounds, soft, non-tender abdomen, no palpable masses, other (rotund) Neurologic: AAOx3, sensation intact bilaterally Psychiatric: interacting appropriately, not anxious, other (Concentration 5/7), No agitated ICD10 Worksheet Patient Problems: Problems Problem Status Onset Diarrhea Acute Influenza A Acute CHF (congestive heart failure) Acute Elevated troponin Acute Sepsis Acute Pneumonia Acute
[2016-11-20] MEDS ORDERED: GADOBUTROL 10 ML VIAL IVP ONE (15:06)
[2016-11-20] MEDS: LATANOPROST 0.005% 2.5 ML OPHT DROPS EACHEYE SCH (21:33)
[2016-11-20] MEDS: MELATONIN 3 MG TAB PO SCH (21:34)
[2016-11-20] MEDS: ARIPiprazole 2 MG TAB PO SCH (21:34)
[2016-11-20 21:52] LABS: GLUCOSE 329 mg/dL (70-100)
[2016-11-21] MEDS: ACETYLCYSTEINE 10% 30 ML VIAL IH SCH ×3 (04:39→09:30)
[2016-11-21] MEDS: ceFAZolin 2 GM in D5W 100 ML IV SCH ×2 (05:29→16:09)
[2016-11-21] MEDS: D5W 1/2 NS 1,000 ML IV SCH (05:29)
[2016-11-21] MEDS: IPRATROPIUM/ALBUTEROL 3 ML DEYVIAL IH SCH ×2 (05:41→09:35)
[2016-11-21 05:55] LABS: ADD DIFF? YES; ADD MORPH? NO; ADD SCAN? NO; ATYPICAL LYMPHOCYTE FLAG 0 (0-99); FRAGMENT RBC FLAG 20 (0-99); HEMATOCRIT 24.6 % (38.0-47.0); HEMOGLOBIN 7.7 g/dL (12.6-16.3); LEFT SHIFT FLG 60 (0-99); LIPEMIA HEMOLYSIS FLAG 80 (0-99); MEAN CELL HEMOGLOBIN 27.6 pg (27.9-34.1); MEAN CELL HEMOGLOBIN CONCENTR. 31.3 g/dL (32.4-36.7); MEAN CELL VOLUME 88.2 fL (81.5-99.8); MEAN PLATELET VOLUME 11.8 fL (8.7-11.7); PLATELET CLUMPS FLAG 0 (0-99); PLATELET COUNT 192 10^3/uL (150-400); RED BLOOD CELL COUNT 2.79 10^6/uL (4.18-5.33); RED CELL DISTRIBUTION WIDTH 16.4 % (11.5-15.2)
[2016-11-21 06:04] LABS: ANION GAP 6 mEq/L (8-16); CALCIUM 8.5 mg/dL (8.5-10.4); CARBON DIOXIDE 23 mEq/l (22-31); CHLORIDE 109 mEq/L (97-110); GLOMERULAR FILTRATION RATE 52; GLUCOSE 223 mg/dL (70-100); POTASSIUM 4.3 mEq/L (3.5-5.2); SODIUM 138 mEq/L (134-144)
[2016-11-21 07:13] LABS: POLYCHROMASIA 1+
[2016-11-21 07:14] LABS: PLATELET ESTIMATE ADEQUATE (ADEQ)
[2016-11-21] MEDS: BUDESONIDE 0.5 MG/2 ML AMPUL.NEB IH SCH (09:35)
--- NOTE | 2016-11-21 09:57 | PCMIDPN ---
Assessment/Plan: Assessment/Plan: 1. MSSA Bacteremia with Pneumonia: - f/u blood cx from 11/13 and 11/14 ngtd -Currently on Ancef therapy. - new picc line placed 11/20/16. -leukocytosis ongoing but likely multifactorial given on prednisone 60 mg daily -will fill out interagency and arrange f/u in office on 11/28/16 at 1:30pm with Dr. Porter. . -plan of care reviewed with patient, family -care coordinated with hospitalist team 2. INfluenza A -s/p tamiflu x 5 days. Med ancef 2g q8- 11/14/16 Subjective: AFebrile. Daughter and granddaughter at bedside. Conversive. Denies abd pain. Working with IS. Objective: Vital Signs Temp Pulse Resp BP Pulse Ox 36.4 C 61 16 160/99 H 95 11/21/16 07:21 11/21/16 09:35 11/21/16 09:35 11/21/16 07:21 11/21/16 09:35 Microbiology 11/14/16 18:45 Blood Culture - Final Blood 11/14/16 17:56 Blood Culture - Final Blood Laboratory Results 11/21/16 05:32 11/21/16 05:32 11/20/16 11/21/16 11/22/16 05:59 05:59 05:59 Intake Total 3078 1380 Balance 3078 1380 - Physical Exam General Appearance: alert, no apparent distress Respiratory: lungs clear Cardiac/Chest: regular rate, rhythm Extremities: swelling Abdomen: normal bowel sounds, distended ICD10 Worksheet Patient Problems: Problems Problem Status Onset CHF (congestive heart failure) Acute Elevated troponin Acute Influenza A Acute Pneumonia Acute Sepsis Acute Diarrhea Acute
--- NOTE | 2016-11-21 10:03 | PDIAF ---
- Diagnosis Diagnosis: MSSA bacteremia/pneumonia Code Status: Do Not Resuscitate - Medication Management Discharge Medications: Medications to Continue on Transfer ARIPiprazole [Abilify 2 mg (*)] 2 mg PO MOWEFR@20 06/09/15 [Last Taken 11/10/16] Acetaminophen [Tylenol Rectal] 650 mg CO QID PRN 06/09/15 [Last Taken 11/06/16] Brimonidine 0.2% [Alphagan 0.2%] 1 drops EACHEYE BID 06/09/15 [Last Taken ] Calcium Carbonate [Tums 500MG (*)] 500 mg PO Q4 PRN 06/09/15 [Last Taken Unknown ] Famotidine [Pepcid 20 MG (*)] 20 mg PO DAILY 06/09/15 [Last Taken 11/10/16] Herbals/Supplements -Info Only 1 ea PO DAILY 06/09/15 [Last Taken 11/10/16] Hydrocodone/Acetaminophen [Warrior 5/325 (*)] 1 each PO TID 06/09/15 [Last Taken 11/10/16] Latanoprost 0.005% [Xalatan 0.005% (*)] 1 drops EACHEYE HS 06/09/15 [Last Taken 11/10/16] Mineral Oil/Petrolatum,White [Refresh P.m. Ointment] 0.25 inch OP HS 06/09/15 [ Last Taken 11/10/16] PARoxetine HCL [Paxil 30mg (*)] 30 mg PO DAILY 06/09/15 [Last Taken 11/10/16] Tears/Hypromellose [Natural Balance] 1 - 2 drops EACHEYE BID PRN 06/09/15 [Last Taken Unknown] Tears/Hypromellose [Natural Balance] 2 drops EACHEYE DAILY 06/09/15 [Last Taken 11/10/16] hydrOXYzine HCL [Vistaril 10MG (RX)] 10 mg PO HS 06/09/15 [Last Taken 11/10/16] hydrOXYzine HCL [Vistaril 10MG (RX)] 10 mg PO Q12 PRN 06/09/15 [Last Taken Unknown] Cholecalciferol (Vitamin D3) [Vitamin D] 50,000 unit PO Q30D 11/11/16 [Last Taken 10/25/16] Hydrocodone/APAP 5/325 [Warrior 5/325 (*)] 1 each PO Q6 PRN 11/11/16 [Last Taken 11/03/16] Memantine HCl [Namenda 5 mg (*)] 5 mg PO BID 11/11/16 [Last Taken 11/10/16] Oseltamivir Phosphate [Tamiflu] 30 mg PO BID 11/11/16 [Last Taken 11/10/16] glipiZIDE [Glipizide] 5 mg PO BID 11/11/16 [Last Taken 11/10/16] Skilled Nursing Antibiotics: Ancef 2g IV q8- Skilled Nursing Antibiotic Stop Date: 12/12/16 Discharge Medications: Refer to the Discharge Home Medication list for PRN reason. PICC Care - Routine: Yes - Orders Diet Texture: Dysphagia 1 - Pureed, Honey Thick Liquids, Ice Chips, Meds Crushed in Puree - Labs/Radiology CBC Date: 11/27/16 (q mondays) CMP Date: 11/27/16 (q mondays) Call or Fax Lab and Imaging Results to: fax to Dr. [phone] - Follow Up Care Current Providers and Referrals: Patient,NotPresent [Unknown] - As per Instructions Jesus Porter MD [Medical Doctor] - 11/28/16 1:30 pm (f/u with Dr. Porter ( Infectious Diseases)-11/28/16 at 1:30pm. Check in time is-1:10pm. )
[2016-11-21] MEDS: INSULIN REGULAR HUMAN 100 UNIT/ML SC SCH ×2 (10:08→14:13)
[2016-11-21] MEDS: ENOXAPARIN 40 MG/0.4 ML SYR SC SCH (10:09)
[2016-11-21] MEDS: predniSONE 20 MG TAB PO SCH (10:09)
[2016-11-21] MEDS: glipiZIDE 5 MG TAB PO SCH (10:10)
[2016-11-21] MEDS: MEMANTINE HCL 5 MG TAB PO SCH (10:10)
[2016-11-21] MEDS: FAMOTIDINE 20 MG TAB PO SCH (10:10)
[2016-11-21] MEDS: BRIMONIDINE 0.2% 5 ML OPHT.BTL EACHEYE SCH (10:11)
--- NOTE | 2016-11-21 10:32 | PDIAF ---
- Diagnosis Diagnosis: MSSA bacteremia/pneumonia Code Status: Do Not Resuscitate - Medication Management Discharge Medications: Medications to Continue on Transfer ARIPiprazole [Abilify 2 mg (*)] 2 mg PO MOWEFR@20 06/09/15 [Last Taken 11/10/16] Acetaminophen [Tylenol Rectal] 650 mg ME QID PRN 06/09/15 [Last Taken 11/06/16] Brimonidine 0.2% [Alphagan 0.2%] 1 drops EACHEYE BID 06/09/15 [Last Taken ] Calcium Carbonate [Tums 500MG (*)] 500 mg PO Q4 PRN 06/09/15 [Last Taken Unknown ] Famotidine [Pepcid 20 MG (*)] 20 mg PO DAILY 06/09/15 [Last Taken 11/10/16] Herbals/Supplements -Info Only 1 ea PO DAILY 06/09/15 [Last Taken 11/10/16] Latanoprost 0.005% [Xalatan 0.005% (*)] 1 drops EACHEYE HS 06/09/15 [Last Taken 11/10/16] Mineral Oil/Petrolatum,White [Refresh P.m. Ointment] 0.25 inch OP HS 06/09/15 [ Last Taken 11/10/16] PARoxetine HCL [Paxil 30mg (*)] 30 mg PO DAILY 06/09/15 [Last Taken 11/10/16] Tears/Hypromellose [Natural Balance] 1 - 2 drops EACHEYE BID PRN 06/09/15 [Last Taken Unknown] Tears/Hypromellose [Natural Balance] 2 drops EACHEYE DAILY 06/09/15 [Last Taken 11/10/16] Cholecalciferol (Vitamin D3) [Vitamin D3] 50,000 unit PO Q30D 11/11/16 [Last Taken 10/25/16] Memantine HCl [Namenda 5 mg (*)] 5 mg PO BID 11/11/16 [Last Taken 11/10/16] glipiZIDE [Glipizide] 5 mg PO BID 11/11/16 [Last Taken 11/10/16] Bisacodyl [Bisacodyl (*)] 5 mg PO PRN PRN #0 tab 11/21/16 [Last Taken Unknown] Budesonide [Budesonide 0.5MG/2Ml Neb (*)] 0.5 mg IH BID ampul.neb 11/21/16 [ Last Taken Unknown] Ipratropium/Albuterol [Duoneb (*)] 3 ml IH QID deyvial 11/21/16 [Last Taken Unknown] Levalbuterol 1.25 mg [Xopenex 1.25MG Neb (*)] 1.25 mg IH Q4HRS PRN #0 deyvial [Last Taken Unknown] Melatonin [Melatonin 3 MG (*)] 3 mg PO HS tab 11/21/16 [Last Taken Unknown] Sennosides/Docusate Sodium [Senokot-S (OTC)] 1 each PO BID #60 tab 11/21/16 [ Last Taken Unknown] ceFAZolin [Ancef] 2 gm IV Q8 #0 vial 11/21/16 [Last Taken Unknown] guaiFENesin/DEXTROMETHORPHAN [Robitussin Dm Oral Liquid (*)] 10 ml PO Q4HRS PRN #0 ml 11/21/16 [Last Taken Unknown] predniSONE 40 mg PO DAILY #10 tablet 11/21/16 [Last Taken Unknown] Weight Tester Antibiotics: Ancef 2g IV q8- [facility] Antibiotic Stop Date: 12/12/16 Discharge Medications: Refer to the Discharge Home Medication list for PRN reason. PICC Care - Routine: Yes - Orders Services needed: Registered Nurse, Physical Therapy, Occupational Therapy, Speech Language Pathologist Oxygen: 2L NC Diet Texture: Dysphagia 1 - Pureed, Honey Thick Liquids, Ice Chips, Meds Crushed in Puree Weigh Patient: weekly Andujar: Not applicable Wound Care Instructions: Please apply skin protectant cream to patient's buttocks and solo-area with every brief change to prevent skin breakdown. Strict check and change schedule to monitor for wetness. Continue using Interdry sheets in abdominal (pannus) and groin folds to prevent break down from moisture in skin folds. Interdry sheets are re-usable, and may be washed daily and hung up to dry. Activity/Weight Bearing Restrictions: Walker as tolerates - Labs/Radiology CBC Date: 11/27/16 (q mondays) CMP Date: 11/27/16 (q mondays) Call or Fax Lab and Imaging Results to: fax to Dr. PorterHurd-[phone] - Follow Up Care Current Providers and Referrals: Jesus Porter MD [Medical Doctor] - 11/28/16 1:30 pm (f/u with Dr. Porter ( Infectious Diseases)-11/28/16 at 1:30pm. Check in time is-1:10pm. ) Patient,NotPresent [Unknown] - As per Instructions Lindsey Castro MD [Medical Doctor] - follow up in 2 weeks
--- NOTE | 2016-11-21 10:44 | PDDCSUM ---
Discharge Summary Discharge Summary: DISCHARGE SUMMARY FOLLOW-UP ITEMS: Labs to be done weekly and sent to Dr. Porter Arrange follow up with Dr. Castro at [facility] DATE OF ADMISSION: 11/11/2016 DATE OF DISCHARGE: 11/21/2016 DISCHARGE DIAGNOSES: 1. Severe sepsis 2. MSSA bacteremia 3. Suspected MSSA pneumonia 4. Influenza a infection 5. Acute on chronic hypoxic respiratory failure 6. Acute COPD exacerbation 7. Obesity with BMI of 34 8. Chronic diabetes mellitus type 2 with hyperglycemia 9. Possible left atrial thrombus 10. Acute encephalopathy 11. Acute dysphagia 12. Chronic kidney disease stage 3 13. Acute hypernatremia 14. Normocytic anemia CONSULTATIONS: Infectious Disease PROCEDURES / IMAGIN11/11/2016 central line placement, brain MRI demonstrating no abnormalities, echocardiogram demonstrating possible left atrial thrombus CHIEF COMPLAINT: Acute weakness and shortness of breath SUBJECTIVE: Patient is feeling improved at time of discharge, her mental status has significantly improved, she continues to experience productive cough particularly in the mornings PHYSICAL EXAM ON DISCHARGE: Systolic blood pressure is 1/40, heart rate 70 to 80, afebrile overnight, satting well on 2 L nasal cannula, alert awake oriented x3, interactive, cooperative, follows commands, faint expiratory wheeze bilaterally without bronchial breath sounds, some faint inspiratory rhonchi in the left, no lower extremity edema, diffuse ecchymoses without any induration LABS ON DISCHARGE: Potassium 4.3, creatinine 1.0, white blood cell count 53548, hemoglobin 7.7, platelets a [id number] HOSPITAL COURSE BY PROBLEM: 1. Severe sepsis. Evidenced by sepsis-2 criteria with fever, tachypnea, tachycardia, leukocytosis, clear source of infection, end-organ failure with respiratory failure and acute encephalopathy, resulting in autonomic dysregulation in the setting of infection and requiring the intensive care unit. She has been afebrile at time of discharge and her leukocytosis has stabilized, most likely remaining elevated secondary to ongoing use of steroids. 2. MSSA bacteremia. 11/11/2016 blood cultures were positive, repeat culture on were no growth to date. Most likely source is pneumonia. Patient was seen by infectious disease and placed on Ancef. She will require 4 weeks of IV antibiotics given her suspected bacterial superinfection pneumonia. She will be seen in the outpatient setting by Dr. Porter. 3. Suspected MSSA pneumonia. Patient experienced a potential bacterial superinfection in the setting of influenza. She had pneumonia on chest imaging. There is no evidence of abscess formation. She was continued on Ancef to treat this. 4. Influenza a infection. Patient most likely was initially ill from influenza a and this involved to a bacterial super infection. She received 5 days of Tamiflu. 5. Acute on chronic hypoxic respiratory failure. Evidenced by an SpO2 of 85% on room air with objective tachypnea and respiratory rate of 24 as well as symptoms of shortness of breath, most likely secondary to her pneumonia. She did require initial BiPAP therapy in the intensive care unit. She has been weaned to nasal cannula oxygen. 6. Acute COPD exacerbation. Evidenced by diffuse expiratory wheezes and respiratory failure outlined above, most likely secondary to inflammation in the setting of influenza and bacterial pneumonia. Patient was placed on prednisone and scheduled duo nebulizer treatments, patient's prednisone will now be tapered over the span of 1 week given her severity of illness and ongoing presence of expiratory wheezes. She also be continued on duo nebs to be reduced to as needed in the outpatient setting depending on clinical resolution. She also have as needed Xopenex. 7. Obesity with BMI of 34. Poor prognostic indicator. Resulting in deconditioning and limited mobility. 8. Chronic diabetes mellitus type 2 with hyperglycemia patient's hemoglobin A1c is 12.2% and she was continued on glipizide during this hospitalization. She will most likely require additional glycemic agent as an outpatient, most likely Lantus. This can be arranged with the patient's primary care provider. 9. Possible left atrial thrombus. Patient's chest echo demonstrated possible left atrial thrombus but there was no evidence of atrial fibrillation on telemetry during this hospitalization. Patient's dense encephalopathy and risk of worsening with sedation, the patient and her family decided to hold on the procedure at this time and to have this reassessed in the outpatient setting by Dr. Castro. If patient does successfully recovered from her infection, then an outpatient transesophageal echocardiogram it can be scheduled so that systemic anticoagulation can be initiated if indicated. We did perform an MRI which did not demonstrate any evidence of cardioembolic infarcts. 10. Acute encephalopathy. Evidenced by global brain dysfunction characterized as disorientation plus somnolence, all of which are an acute change from her baseline. Most likely secondary to the toxic effects of infection. Patient's mental status has improved significantly since treating her infection as well as eliminating any sedating medications from her profile including antihistamines and narcotics. She has been initiated on at bedtime melatonin and she has not been complaining of any pain symptoms. 11. Acute dysphagia. Most likely secondary to patient's severe illness, GAMBLING SUPERVISOR arline has provided dietary recommendations and this should be reassessed in outpatient setting. 12. Chronic kidney disease stage 3. Patient's baseline creatinine level ranges between 1.01.2, she is currently at her baseline. 13. Acute hypernatremia. Most likely secondary to poor free water intake while the patient was encephalopathic. This has stabilized and she is eating and drinking. 14. Normocytic anemia. Most likely secondary to anemia of chronic inflammatory disease, patient will receive 1 unit packed red blood cell prior to discharge for hemoglobin level of 7.7, so the patient's physical therapy and rehabilitation is not limited secondary to anemia associated weakness. She will have outpatient CBCs monitored through the Infectious Disease Clinic. DISCHARGE MEDICATIONS: Please see official discharge medication reconciliation sheet in chart , Ancef 2 g q.8 hours, melatonin at bedtime, prednisone taper over 1 week, scheduled DuoNeb treatments to be reduced to as needed once patient's clinical status warrants. DISCHARGE INSTRUCTIONS: Please follow up with Dr. Porter on 11/28, and Dr. Castro thereafter, please call to make appointment. TIME SPENT: Greater than 30 minutes were spent on direct patient care, as well as discharge planning and preparation.
[2016-11-21 16:45] VITALS: BP 140/70; PULSE 77; RESP 18; TEMP 97.6; O2SAT 98
== END 2016-11-21 16:49 | DRG 871 ==
LOC: EDUNIT# → F2N 05:03 → F3E 11-14 13:00
PROVIDERS: ADMIT Internal Medicine; ATTEND Internal Medicine
PROC: 02HV33Z Insertion of Infusion Device into Superior Vena Cava, Percutaneous Approach (ICD-10-PCS; principal; 2016-11-11)
PROC: 02HV33Z Insertion of Infusion Device into Superior Vena Cava, Percutaneous Approach (ICD-10-PCS; 2016-11-17)
DX: A41.01 Sepsis due to Methicillin susceptible Staphylococcus aureus (principal); R65.20 Severe sepsis without septic shock; J10.08 Influenza due to other identified influenza virus with other specified pneumonia; J15.211 Pneumonia due to Methicillin susceptible Staphylococcus aureus; J96.21 Acute and chronic respiratory failure with hypoxia; J44.1 Chronic obstructive pulmonary disease with (acute) exacerbation; E11.65 Type 2 diabetes mellitus with hyperglycemia; E87.0 Hyperosmolality and hypernatremia; G93.41 Metabolic encephalopathy; I51.3 Intracardiac thrombosis, not elsewhere classified; E11.22 Type 2 diabetes mellitus with diabetic chronic kidney disease; I12.9 Hypertensive chronic kidney disease with stage 1 through stage 4 chronic kidney disease, or unspecified chronic kidney disease; N18.3 Chronic kidney disease, stage 3 (moderate); K21.9 Gastro-esophageal reflux disease without esophagitis; R13.10 Dysphagia, unspecified; E66.9 Obesity, unspecified; Z68.34 Body mass index [BMI] 34.0-34.9, adult; Z99.3 Dependence on wheelchair
CPT/HCPCS: 82947-QW; 87449-90; 92526-GN; 92610-GN; 92611-GN; 96374; 97165-GO; A9585; C1751; G8987-GO-CM; G8988-GO-CM; G8989-GO-CM; G8996-GN-CL; G8997-GN-CI; J0456; J0690; J0692; J1650; J1815; J2405; J2997; J3370; J7626; P9016